=== PATIENT | male | born 1975 | race African-American/Black ===

== ENCOUNTER 2019-01-13 | Inpatient (IN) | payer OTHER ==
[2019-01-13 00:31] LABS: Appearance,Urine Clear (Clear); Bilirubin,Urine Negative (Negative); Blood,Urine Negative (Negative); Color,Urine Yellow; Glucose,Urine (UA) Negative (Negative); Ketones,Urine Negative (Negative); Leukocyte Esterase,Urine Small (Negative); Mucus,Urine Rare /hpf; Nitrite,Urine Negative (Negative); Protein,Urine Trace (Negative); RBC,Urine 9 /hpf (0-5); Specific Gravity,Urine 1.025 (1.001-1.035); Squamous Epithelial Cell,Urine 1 /hpf (0-4)
--- NOTE | 2019-01-13 00:38 | XR ---
EXAM: XR Abdomen, 1 View CLINICAL HISTORY: ITS.REASON XR Reason: Pain TECHNIQUE: Frontal supine view of the abdomen/pelvis. COMPARISON: None FINDINGS: Hardware: None. Abdomen: Nonobstructive bowel gas pattern. No free air. Bones: Normal. Soft tissues: Normal. Lower chest: Normal. IMPRESSION: No acute abnormality.
[2019-01-13 02:21] LABS: Basophils % (A) 0 %; Eosinophils # (A) 0.2 k/uL (0-0.7); Eosinophils % (A) 1 %; HCT 44.4 % (39.0-53.0); HGB 14.2 gm/dL (13.0-17.5); Lymphocytes # (A) 2.1 k/uL (1.0-4.8); Lymphocytes % (A) 16 %; MCH 29.6 pg (25.0-35.0); MCHC 32.1 g/dL (31.0-37.0); MCV 92.2 fL (80.0-100.0); Mean Platelet Volume 7.2; Monocytes # (A) 0.5 k/uL (0-1.0); Monocytes % (A) 4 %; Neutrophils # (A) 9.7 k/uL (1.3-7.7); Neutrophils % (A) 77 %; Platelet Count 305 k/uL (150-450); RBC 4.82 m/uL (4.30-5.90); RDW 14.9 % (11.5-15.5); WBC 12.5 k/uL (3.8-10.6)
[2019-01-13 02:31] LABS: ALT 30 U/L (21-72); AST 23 U/L (17-59); African American GFR (CKD) >90 (>60 ml/min/1.73 sqM); Albumin 4.5 g/dL (3.5-5.0); Alkaline Phosphatase 86 U/L (38-126); Amylase 83 U/L (30-110); Anion Gap 8 mmol/L; Blood Urea Nitrogen 10 mg/dL (9-20); Calcium 9.6 mg/dL (8.4-10.2); Carbon Dioxide 23 mmol/L (22-30); Chloride 107 mmol/L (98-107); Glucose 129 mg/dL (74-99); Lipase 76 U/L (23-300); Potassium 4.5 mmol/L (3.5-5.1); Sodium 138 mmol/L (137-145); Total Bilirubin 0.5 mg/dL (0.2-1.3); Total Protein 7.9 g/dL (6.3-8.2)
[2019-01-13] MEDS ORDERED: ONDANSETRON 4 MG/2 ML VIAL IVP STA (02:37)
[2019-01-13] MEDS ORDERED: MORPHINE SULFATE 4 MG/ML SYRINGE IVP STA (02:37)
--- NOTE | 2019-01-13 03:03 | CT ---
EXAM: CT Abdomen and Pelvis With Intravenous Contrast CLINICAL HISTORY: ITS.REASON CT Reason: Pain TECHNIQUE: Axial computed tomography images of the abdomen and pelvis with intravenous contrast. CTDI is 48 mGy and DLP is 2582 mGy-cm. This CT exam was performed using one or more of the following dose reduction techniques: automated exposure control, adjustment of the mA and/or kV according to patient size, and/or use of iterative reconstruction technique. COMPARISON: No relevant prior studies available. FINDINGS: Lung bases: No mass. No consolidation. ABDOMEN: Liver: Enlarged with steatosis. Gallbladder and bile ducts: Unremarkable. Pancreas: Unremarkable. Spleen: Unremarkable. Adrenals: 1.7 cm low-density left adrenal nodule. Kidneys and ureters: No hydronephrosis. Stomach and bowel: No bowel obstruction. No bowel wall thickening. PELVIS: Appendix: Dilated to 1 cm with mild periappendiceal stranding. Bladder: Unremarkable. Reproductive: Unremarkable. ABDOMEN and PELVIS: Intraperitoneal space: Unremarkable. Bones/joints: No acute fractures. Soft tissues: Unremarkable. Vasculature: No abdominal aortic aneurysm. Lymph nodes: No enlarged lymph nodes. IMPRESSION: 1. Evidence of acute appendicitis. No abscess, perforation, or bowel obstruction. 2. Incidental note of a low density 1.7 cm left adrenal gland nodule. 3. Hepatomegaly with steatosis. <MYCVCSECTION> Critical Value Communications 01/13/19 03:12 Verify Receipt Verified receipt with DENISE Short. Report will go to NANCY Lainez on 01/13 03:12 (-04:00)
[2019-01-13] MEDS ORDERED: PIPERACILLIN-TAZOBACTAM 3.375 GM in SODIUM CHLORIDE 0.9% 100 ML IVPB STA (03:14)
--- NOTE | 2019-01-13 03:15 | ED ---
Abdominal Pain HPI <Dorina Lainez - Last Filed: 01/13/19 03:22> - General Source: patient Mode of arrival: ambulatory Limitations: no limitations <Yajaira De León - Last Filed: 01/13/19 05:23> - General Chief Complaint: Abdominal Pain Stated Complaint: Abdominal Pain Time Seen by Provider: 01/13/19 01:55 - History of Present Illness Initial Comments: 43-year-old male patient presents to emergency department today for evaluation of right lower quadrant abdominal pain. Patient states he started with abdominal discomfort and bloating this morning. Patient states this afternoon he took a nap and when he woke up around 5 PM he had severe right lower quadrant pain. Patient states it felt like someone was stabbing him. Denies any radiation of the pain through to his back. Patient states he has been nauseated but did not vomit. Denies any obstipation or diarrhea. Denies any fever or chills with this. Denies any history of abdominal surgery. Patient denies any recent rash, shortness breath, chest pain, back pain, numbness, tingling, dizziness, weakness, hematuria, dysuria, urinary urgency, urinary frequency, headache, visual changes, or any other complaints. (Dorina Lainez) - Related Data Allergies Allergy/AdvReac Type Severity Reaction Status Date / Time No Known Allergies Allergy Verified 01/13/19 00:12 Review of Systems ROS Other: All systems not noted in ROS Statement are negative. <Dorina Lainez - Last Filed: 01/13/19 03:22> ROS Other: All systems not noted in ROS Statement are negative. <Yajaira De León - Last Filed: 01/13/19 05:23> ROS Statement: Those systems with pertinent positive or pertinent negative responses have been documented in the HPI. Past Medical History Past Medical History: No Reported History History of Any Multi-Drug Resistant Organisms: None Reported Past Surgical History: No Surgical Hx Reported Past Psychological History: No Psychological Hx Reported Smoking Status: Current every day smoker Past Alcohol Use History: None Reported Past Drug Use History: None Reported <Yajaira De León - Last Filed: 01/13/19 05:23> General Exam General appearance: alert, in no apparent distress, other (Physical well- developed, well-nourished adult male patient in no acute distress. Vital signs upon presentation are temperature 98.2F, pulse 95, respirations 19, blood pressure 144/92, pulse ox 97% on room air.) Eye exam: Present: normal appearance, PERRL, EOMI. Absent: scleral icterus, conjunctival injection, periorbital swelling ENT exam: Present: normal exam, normal oropharynx, mucous membranes moist Respiratory exam: Present: normal lung sounds bilaterally. Absent: respiratory distress, wheezes, rales, rhonchi, stridor Cardiovascular Exam: Present: regular rate, normal rhythm, normal heart sounds. Absent: systolic murmur, diastolic murmur, rubs, gallop, clicks GI/Abdominal exam: Present: soft, tenderness (Right lower quadrant tenderness), normal bowel sounds. Absent: distended, guarding, rebound, rigid Neurological exam: Present: alert, oriented X3, CN II-XII intact Psychiatric exam: Present: normal affect, normal mood Skin exam: Present: warm, dry, intact, normal color. Absent: rash <Dorina Lainez M - Last Filed: 01/13/19 03:22> Limitations: no limitations <Yajaira De León P - Last Filed: 01/13/19 05:23> Course Vital Signs 01/13/19 01/13/19 00:09 04:38 Temperature 98.2 F Pulse Rate 95 86 Respiratory 19 20 Rate Blood Pressure 144/92 137/68 O2 Sat by Pulse 97 96 Oximetry Medical Decision Making - Lab Data Result diagrams: 01/13/19 01:48 01/13/19 01:48 - Radiology Data Radiology results: report reviewed, image reviewed <Dorina Lainez M - Last Filed: 01/13/19 03:22> - Lab Data Result diagrams: 01/13/19 01:48 01/13/19 01:48 <Yajaira De León P - Last Filed: 01/13/19 05:23> - Medical Decision Making 43-year-old male patient presents the emergency department today for evaluation of right lower quadrant abdominal pain. Physical examination did reveal right lower quadrant tenderness. Labs reviewed and did reveal white blood cell count at 12.5, with a neutrophil count of 9.7. Urinalysis shows trace protein with small leukocyte esterase, 9 red blood cells, 7 white blood cells, rare mucous. No bacteria. CT abdomen and pelvis was obtained for suspicion of appendicitis, did show positive appendicitis with no abscess, perforation, or bowel structure. Patient will be started on IV antibiotics and admitted to general surgery. (Dorina Lainez) I personally saw and evaluated patient. I agree with the mid-level provider's workup and diagnosis. Patient resting more comfortably after morphine. Results were discussed with the patient. Patient care was discussed with general surgeon asset protection detective DrArelis passing out agrees with plan for antibiotics, admission he will evaluate the patient in the morning with the plan for surgery. (Yajaira De León) - Lab Data Lab Results 01/13/19 01/13/19 01/13/19 Range/Units 00:12 01:48 01:48 WBC 12.5 H (3.8-10.6) k/uL RBC 4.82 (4.30-5.90) m/uL Hgb 14.2 (13.0-17.5) gm/dL Hct 44.4 (39.0-53.0) % MCV 92.2 (80.0-100.0) fL MCH 29.6 (25.0-35.0) pg MCHC 32.1 (31.0-37.0) g/dL RDW 14.9 (11.5-15.5) % Plt Count 305 (150-450) k/uL Neutrophils % 77 % Lymphocytes % 16 % Monocytes % 4 % Eosinophils % 1 % Basophils % 0 % Neutrophils # 9.7 H (1.3-7.7) k/uL Lymphocytes # 2.1 (1.0-4.8) k/uL Monocytes # 0.5 (0-1.0) k/uL Eosinophils # 0.2 (0-0.7) k/uL Basophils # 0.0 (0-0.2) k/uL Sodium 138 (137-145) mmol/L Potassium 4.5 (3.5-5.1) mmol/L Chloride 107 (98-107) mmol/L Carbon Dioxide 23 (22-30) mmol/L Anion Gap 8 mmol/L BUN 10 (9-20) mg/dL Creatinine 0.67 (0.66-1.25) mg/dL Est GFR (CKD-EPI)AfAm >90 (>60 ml/min/1.73 sqM) Est GFR (CKD-EPI)NonAf >90 (>60 ml/min/1.73 sqM) Glucose 129 H (74-99) mg/dL Calcium 9.6 (8.4-10.2) mg/dL Total Bilirubin 0.5 (0.2-1.3) mg/dL AST 23 (17-59) U/L ALT 30 (21-72) U/L Alkaline Phosphatase 86 (38-126) U/L Total Protein 7.9 (6.3-8.2) g/dL Albumin 4.5 (3.5-5.0) g/dL Amylase 83 (30-110) U/L Lipase 76 (23-300) U/L Urine Color Yellow Urine Appearance Clear (Clear) Urine pH 8.0 (5.0-8.0) Ur Specific [place] 1.025 (1.001-1.035) Urine Protein Trace H (Negative) Urine Glucose (UA) Negative (Negative) Urine Ketones Negative (Negative) Urine Blood Negative (Negative) Urine Nitrite Negative (Negative) Urine Bilirubin Negative (Negative) Urine Urobilinogen 2.0 (<2.0) mg/dL Ur Leukocyte Esterase Small H (Negative) Urine RBC 9 H (0-5) /hpf Urine WBC 7 H (0-5) /hpf Ur Squamous Epith Cells 1 (0-4) /hpf Urine Mucus Rare H (None) /hpf - Radiology Data CT abdomen and pelvis with contrast was obtained. Report was reviewed in its entirety. Impression by Dr. Vincent shows evidence of acute appendicitis. No abscess, perforation, or bowel section. Incidental note of low density 1.7 cm left adrenal gland nodule. Hepatomegaly with steatosis. KUB x-ray of the abdomen is obtained. Report was reviewed in its entirety. Impression by Dr. Bradshaw shows no acute abnormality. (Dorina Lainez) Disposition Decision to Admit Reason: Admit from EC Decision Date: 01/13/19 Decision Time: 03:20 <Dorina Lainez - Last Filed: 01/13/19 03:22> <Yajaira De León - Last Filed: 01/13/19 05:23> Clinical Impression: Acute appendicitis Disposition: ADMITTED IP TO THIS [facility] Condition: Serious
[2019-01-13] MEDS ORDERED: MORPHINE SULFATE 4 MG/ML SYRINGE IV PRN (03:59)
[2019-01-13] MEDS ORDERED: NALOXONE 0.4 MG/ML 1 ML VIAL IV PRN ×2 (03:59→11:07)
[2019-01-13] MEDS ORDERED: ONDANSETRON 4 MG/2 ML VIAL IVP PRN (03:59)
--- NOTE | 2019-01-13 08:47 | P.GSHP ---
<Janice Mason A - Last Filed: 01/13/19 08:42> History of Present Illness H&P Date: 01/13/19 Chief Complaint: Abdominal pain CHIEF COMPLAINT: Abdominal pain HISTORY OF PRESENT ILLNESS: 43-year-old male who presented to the emergency room with a chief complaint of abdominal pain. Patient states he was feeling well yesterday and decided to take a nap yesterday afternoon. When he woke up he was having severe right lower quadrant abdominal pain. He reports some nausea but denies episodes of emesis. Denies diarrhea or constipation. Denies fever or chills. WBC 12 on admission. Computed tomography scan shows evidence of acute appendicitis. PAST MEDICAL HISTORY: See list. PAST SURGICAL HISTORY: See list. SOCIAL HISTORY: No illicit drug use. REVIEW OF SYSTEMS: CONSTITUTIONAL: Denies fever or chills. HEENT: Denies blurred vision, vision changes, or eye pain. Denies hemoptysis CARDIOVASCULAR: Denies chest pain or pressure. RESPIRATORY: No shortness of breath. GASTROINTESTINAL: Refer to [facility] for pertinent findings HEMATOLOGIC: Denies bleeding disorders. GENITOURINARY: Denies any blood in urine. SKIN: Denies pruitis. Denies rash. PHYSICAL EXAM: VITAL SIGNS: Reviewed. GENERAL: Well-developed in no acute distress. HEENT: No sclera icterus. Extraocular movements grossly intact. Moist buccal mucosa. Head is atraumatic, normocephalic. ABDOMEN: Soft. Nondistended. Obese. Tenderness on palpation of right lower quadrant. NEUROLOGIC: Alert and oriented. Cranial nerves II through XII grossly intact. ASSESSMENT: 1. Abdominal pain 2. Acute appendicitis 3. Leukocytosis, secondary to above PLAN: 1. Nothing by mouth 2. IV fluids 3. Continue antibiotics 4. Patient to undergo laparoscopic appendectomy today with Dr. Echols Nurse practitioner note has been reviewed by physician. Signing provider agrees with the documented findings, assessment, and plan of care. Past Medical History Past Medical History: No Reported History History of Any Multi-Drug Resistant Organisms: None Reported Past Surgical History: No Surgical Hx Reported Past Psychological History: No Psychological Hx Reported Smoking Status: Current every day smoker Past Alcohol Use History: None Reported Past Drug Use History: None Reported Medications and Allergies Home Medications Medication Instructions Recorded Confirmed Type No Known Home Medications 01/13/19 01/13/19 History Allergies Allergy/AdvReac Type Severity Reaction Status Date / Time No Known Allergies Allergy Verified 01/13/19 07:25 Surgical - Exam Vital Signs Temp Pulse Resp BP Pulse Ox 98.2 F 95 19 144/92 97 01/13/19 00:09 01/13/19 00:09 01/13/19 00:09 01/13/19 00:09 01/13/19 00:09 Results - Labs 01/13/19 01:48 01/13/19 01:48 Abnormal Lab Results - Last 24 Hours (Table) 01/13/19 01/13/19 01/13/19 Range/Units 00:12 01:48 01:48 WBC 12.5 H (3.8-10.6) k/uL Neutrophils # 9.7 H (1.3-7.7) k/uL Glucose 129 H (74-99) mg/dL Urine Protein Trace H (Negative) Ur Leukocyte Esterase Small H (Negative) Urine RBC 9 H (0-5) /hpf Urine WBC 7 H (0-5) /hpf Urine Mucus Rare H (None) /hpf Diabetes panel 01/13/19 Range/Units 01:48 Sodium 138 (137-145) mmol/L Potassium 4.5 (3.5-5.1) mmol/L Chloride 107 (98-107) mmol/L Carbon Dioxide 23 (22-30) mmol/L BUN 10 (9-20) mg/dL Creatinine 0.67 (0.66-1.25) mg/dL Glucose 129 H (74-99) mg/dL Calcium 9.6 (8.4-10.2) mg/dL AST 23 (17-59) U/L ALT 30 (21-72) U/L Alkaline Phosphatase 86 (38-126) U/L Total Protein 7.9 (6.3-8.2) g/dL Albumin 4.5 (3.5-5.0) g/dL Calcium panel 01/13/19 Range/Units 01:48 Calcium 9.6 (8.4-10.2) mg/dL Albumin 4.5 (3.5-5.0) g/dL Pituitary panel 01/13/19 Range/Units 01:48 Sodium 138 (137-145) mmol/L Potassium 4.5 (3.5-5.1) mmol/L Chloride 107 (98-107) mmol/L Carbon Dioxide 23 (22-30) mmol/L BUN 10 (9-20) mg/dL Creatinine 0.67 (0.66-1.25) mg/dL Glucose 129 H (74-99) mg/dL Calcium 9.6 (8.4-10.2) mg/dL Adrenal panel 01/13/19 Range/Units 01:48 Sodium 138 (137-145) mmol/L Potassium 4.5 (3.5-5.1) mmol/L Chloride 107 (98-107) mmol/L Carbon Dioxide 23 (22-30) mmol/L BUN 10 (9-20) mg/dL Creatinine 0.67 (0.66-1.25) mg/dL Glucose 129 H (74-99) mg/dL Calcium 9.6 (8.4-10.2) mg/dL Total Bilirubin 0.5 (0.2-1.3) mg/dL AST 23 (17-59) U/L ALT 30 (21-72) U/L Alkaline Phosphatase 86 (38-126) U/L Total Protein 7.9 (6.3-8.2) g/dL Albumin 4.5 (3.5-5.0) g/dL <Rj Echols - Last Filed: 01/13/19 09:54> Surgical - Exam Vital Signs Temp Pulse Resp BP Pulse Ox 98.2 F 95 19 144/92 97 01/13/19 00:09 01/13/19 00:09 01/13/19 00:09 01/13/19 00:09 01/13/19 00:09 Results - Labs 01/13/19 01:48 01/13/19 01:48 Abnormal Lab Results - Last 24 Hours (Table) 01/13/19 01/13/19 01/13/19 Range/Units 00:12 01:48 01:48 WBC 12.5 H (3.8-10.6) k/uL Neutrophils # 9.7 H (1.3-7.7) k/uL Glucose 129 H (74-99) mg/dL Urine Protein Trace H (Negative) Ur Leukocyte Esterase Small H (Negative) Urine RBC 9 H (0-5) /hpf Urine WBC 7 H (0-5) /hpf Urine Mucus Rare H (None) /hpf Diabetes panel 01/13/19 Range/Units 01:48 Sodium 138 (137-145) mmol/L Potassium 4.5 (3.5-5.1) mmol/L Chloride 107 (98-107) mmol/L Carbon Dioxide 23 (22-30) mmol/L BUN 10 (9-20) mg/dL Creatinine 0.67 (0.66-1.25) mg/dL Glucose 129 H (74-99) mg/dL Calcium 9.6 (8.4-10.2) mg/dL AST 23 (17-59) U/L ALT 30 (21-72) U/L Alkaline Phosphatase 86 (38-126) U/L Total Protein 7.9 (6.3-8.2) g/dL Albumin 4.5 (3.5-5.0) g/dL Calcium panel 01/13/19 Range/Units 01:48 Calcium 9.6 (8.4-10.2) mg/dL Albumin 4.5 (3.5-5.0) g/dL Pituitary panel 01/13/19 Range/Units 01:48 Sodium 138 (137-145) mmol/L Potassium 4.5 (3.5-5.1) mmol/L Chloride 107 (98-107) mmol/L Carbon Dioxide 23 (22-30) mmol/L BUN 10 (9-20) mg/dL Creatinine 0.67 (0.66-1.25) mg/dL Glucose 129 H (74-99) mg/dL Calcium 9.6 (8.4-10.2) mg/dL Adrenal panel 01/13/19 Range/Units 01:48 Sodium 138 (137-145) mmol/L Potassium 4.5 (3.5-5.1) mmol/L Chloride 107 (98-107) mmol/L Carbon Dioxide 23 (22-30) mmol/L BUN 10 (9-20) mg/dL Creatinine 0.67 (0.66-1.25) mg/dL Glucose 129 H (74-99) mg/dL Calcium 9.6 (8.4-10.2) mg/dL Total Bilirubin 0.5 (0.2-1.3) mg/dL AST 23 (17-59) U/L ALT 30 (21-72) U/L Alkaline Phosphatase 86 (38-126) U/L Total Protein 7.9 (6.3-8.2) g/dL Albumin 4.5 (3.5-5.0) g/dL Assessment and Plan Assessment: Acute appendicitis. We'll perform laparoscopic appendectomy
[2019-01-13] MEDS ORDERED: LACTATED RINGERS 1,000 ML IV ONE ×2 (09:42→11:07)
[2019-01-13] MEDS ORDERED: HEPARIN SODIUM,PORCINE 5,000 UNIT/ML 1 ML VIAL SQ ONE (09:58)
[2019-01-13] MEDS ORDERED: MIDAZOLAM 2 MG/2 ML VIAL ONE (10:08)
[2019-01-13] MEDS ORDERED: PROPOFOL 10 MG/ML 20 ML VIAL IV ONE (10:08)
[2019-01-13] MEDS ORDERED: ROCURONIUM BROMIDE 10 MG/ML 10 ML VIAL IV ONE (10:08)
[2019-01-13] MEDS ORDERED: NEOSTIGMINE 1 MG/ML 10 ML VIAL ONE (10:08)
[2019-01-13] MEDS ORDERED: HYDROmorphone (PF) 1 MG/ML ONE (10:08)
[2019-01-13] MEDS ORDERED: SUCCINYLCHOLINE CHLORIDE VIAL 200 MG/10 ML VIAL IV ONE (10:08)
[2019-01-13] MEDS ORDERED: fentaNYL (PF) 50 MCG/ML 2 ML AMP ONE (10:08)
[2019-01-13] MEDS ORDERED: LIDOCAINE 1% INJ 10MG/ML (20 ML MDV) ONE (10:08)
[2019-01-13] MEDS ORDERED: GLYCOPYRROLATE 0.2 MG/ML 2 ML VIAL ONE (10:08)
[2019-01-13] MEDS ORDERED: BUPIVACAIN-EPI 0.25%-1:200,000 30 ML VIAL SQ ONE (10:44)
[2019-01-13] MEDS ORDERED: HYDROcodone/APAP 5-325MG 1 EACH TAB PO PRN (11:07)
[2019-01-13] MEDS ORDERED: Acetaminophen-Codeine 300-30mg TAB PO PRN (11:07)
[2019-01-13] MEDS ORDERED: METOCLOPRAMIDE 5 MG/ML 2 ML VIAL IVP PRN (11:07)
[2019-01-13] MEDS ORDERED: HYDROmorphone 0.5 MG/0.5 ML SYRINGE IVP PRN (11:07)
--- NOTE | 2019-01-13 11:07 | P.OP ---
Date of Procedure: 01/13/19 Preoperative Diagnosis: Acute appendicitis Postoperative Diagnosis: Acute appendicitis with microperforation and ischemia Procedure(s) Performed: Laparoscopic appendectomy Anesthesia: FATIMAH Surgeon: Rj Echols Estimated Blood Loss (ml): 5 Pathology: other (Appendix) Condition: stable Disposition: PACU Description of Procedure: HThe patient's placed on the operating table in the supine position. The patient received general anesthesia. The abdomen was prepped and draped in the usual sterile fashion. The skin was anesthetized 1% local Xylocaine at the trocar sites. Using an 11 blade the skin was incised at the umbilicus. The umbilicus was grasped with a Aaron clamp and then a Veress needle was placed into the peritoneal cavity. Position of the Veress needle was confirmed with positive drop test. After adequate insufflation a 5 mm trocar was placed into the peritoneal cavity. The abdomen was further insufflated. And then the laparoscope was placed in the peritoneal cavity. Next a 5 mm trocar was placed in the midline suprapubic position. And then a 10 mm trocar was placed in the midline epigastric position. The patient was rotated with the right side up and in Trendelenburg. The appendix was visualized. The appendix appeared to be inflamed. There was evidence of microperforation of the appendix. The postvoid quite swollen. There was some purulence around the appendix. The appendix was grasped and then using the Harmonic scissors the mesoappendix was divided. A PDS Endoloop was then placed around the base of the appendix. And then the appendix was divided using Harmonic scissors. The appendix was placed into an Endo Catch and brought out through the 10 mm trocar site. The abdomen was irrigated. There is no bleeding seen. The trochars withdrawn. The skin was closed interrupted 3-0 Monocryl suture. Dermabond dressing was applied. Patient was sent to recovery room in stable condition.
[2019-01-13] MEDS ORDERED: HYDROmorphone 1 MG/ML 1 ML SYRINGE IVP ONE ×2 (11:29→12:02)
[2019-01-13] MEDS: KETOROLAC 30 MG/ML 1 ML VIAL IVP SCH ×3 (15:26→22:39)
[2019-01-13] MEDS: SODIUM CHLORIDE 0.9% 1,000 ML IV SCH ×3 (15:26→21:17)
[2019-01-13] MEDS: PIPERACILLIN-TAZOBACTAM 3.375 GM in SODIUM CHLORIDE 0.9% 100 ML IVPB SCH ×2 (15:26→16:43)
--- NOTE | 2019-01-13 16:42 | P.CONS ---
History of Present Illness - Reason for Consult Recommendations regarding antibiotics - History of Present Illness 43-year-old male came in with severe right lower quadrant abdominal pain along with nausea going on since yesterday afternoon. Patient is found to have appendicitis and underwent laparotomy which showed ruptured appendix patient was started on Zosyn which is appropriate patient had white blood cell count of 12,000 patient is receiving IV fluids since abdominal pain significantly improved patient did not pass gas yet. Patient denied any fever chills. Review of Systems REVIEW OF SYSTEMS: CONSTITUTIONAL: No fever, no malaise, no fatigue. HEENT: No recent visual problems or hearing problems. Denied any sore throat. CARDIOVASCULAR: No chest pain, orthopnea, PND, no palpitations, no syncope. PULMONARY: No shortness of breath, no cough, no hemoptysis. GASTROINTESTINAL: No diarrhea NEUROLOGICAL: No headaches, no weakness, no numbness. HEMATOLOGICAL: Denies any bleeding or petechiae. GENITOURINARY: Denies any burning micturition, frequency, or urgency. MUSCULOSKELETAL/RHEUMATOLOGICAL: Denies any joint pain, swelling, or any muscle pain. ENDOCRINE: Denies any polyuria or polydipsia. The rest of the 14-point review of systems is negative. Past Medical History Past Medical History: No Reported History Additional Past Medical History / Comment(s): Bronchitis History of Any Multi-Drug Resistant Organisms: None Reported Past Surgical History: No Surgical Hx Reported Additional Past Surgical History / Comment(s): L leg fractures-closed reduction with anesthesia. Past Anesthesia/Blood Transfusion Reactions: No Reported Reaction Smoking Status: Current every day smoker - Past Family History Father History Unknown: Yes Additional Family Medical History / Comment(s): Pt does not know who father is. Mother Family Medical History: Diabetes Mellitus Medications and Allergies Home Medications Medication Instructions Recorded Confirmed Type No Known Home Medications 01/13/19 01/13/19 History Allergies Allergy/AdvReac Type Severity Reaction Status Date / Time No Known Allergies Allergy Verified 01/13/19 07:25 Physical Exam Vitals: Vital Signs Temp Pulse Pulse Resp BP BP BP 01/13/19 15:00 99.4 F 96 16 104/64 01/13/19 14:30 98 16 123/64 01/13/19 13:45 92 16 138/59 01/13/19 13:30 101 H 16 135/63 01/13/19 13:00 103 H 16 107/61 01/13/19 12:45 91 14 139/62 01/13/19 12:30 106 H 14 126/59 01/13/19 12:15 96 14 138/60 01/13/19 12:00 104 H 14 128/74 01/13/19 11:45 106 H 14 154/65 01/13/19 11:30 107 H 14 131/59 01/13/19 11:24 98.5 F 109 H 20 132/58 01/13/19 09:41 99.9 F H 107 H 18 148/69 01/13/19 06:51 91 20 132/64 01/13/19 04:38 86 20 137/68 01/13/19 00:09 98.2 F 95 19 144/92 Pulse Ox 01/13/19 15:00 96 01/13/19 14:30 95 01/13/19 13:45 96 01/13/19 13:30 99 01/13/19 13:00 96 01/13/19 12:45 94 L 01/13/19 12:30 95 01/13/19 12:15 93 L 01/13/19 12:00 94 L 01/13/19 11:45 91 L 01/13/19 11:30 91 L 01/13/19 11:24 99 01/13/19 09:41 95 01/13/19 06:51 95 01/13/19 04:38 96 01/13/19 00:09 97 Intake and Output 01/13/19 01/13/19 01/13/19 06:59 14:59 22:59 Intake Total 900 Output Total 5 Balance 895 Intake: IV 900 Output: Estimated Blood Loss 5 Other: # Voids 1 Weight 136.078 kg PHYSICAL EXAMINATION: GENERAL: The patient is alert and oriented x3, not in any acute distress. Obese HEENT: Pupils are round and equally reacting to light. EOMI. No scleral icterus. No conjunctival pallor. Normocephalic, atraumatic. No pharyngeal erythema. No thyromegaly. CARDIOVASCULAR: S1 and S2 present. No murmurs, rubs, or gallops. PULMONARY: Chest is clear to auscultation, no wheezing or crackles. ABDOMEN: Soft, surgical site areas clean, sluggish bowel sounds MUSCULOSKELETAL: No joint swelling or deformity. EXTREMITIES: No cyanosis, clubbing, or pedal edema. NEUROLOGICAL: Gross neurological examination did not reveal any focal deficits. SKIN: No rashes. Results CBC & Chem 7: 01/13/19 01:48 01/13/19 01:48 Labs: Abnormal Lab Results - Last 24 Hours (Table) 01/13/19 01/13/19 01/13/19 Range/Units 00:12 01:48 01:48 WBC 12.5 H (3.8-10.6) k/uL Neutrophils # 9.7 H (1.3-7.7) k/uL Glucose 129 H (74-99) mg/dL Urine Protein Trace H (Negative) Ur Leukocyte Esterase Small H (Negative) Urine RBC 9 H (0-5) /hpf Urine WBC 7 H (0-5) /hpf Urine Mucus Rare H (None) /hpf Assessment and Plan Plan: -Acute appendicitis ruptured appendix: Patient on appropriate antibiotics continue with present medications will monitor -Nicotine abuse: Counseling was provided -Obesity: Counseling was provided Thank you for letting me participate in the patient's care will continue to follow
--- NOTE | 2019-01-13 21:19 | P.CONS ---
History of Present Illness - Reason for Consult Consult date: 01/13/19 Ruptured appendicitis and antibiotic recommendation Requesting physician: Rj Echols - Chief Complaint Abdominal pain 1 day - History of Present Illness Patient is a 43-year-old -[place] male presenting to the ER at [facility] with the chief complaints of abdominal pain of one-day duration the patient patient has been mostly in the right lower quadrant area that started the day he presented to hospital he has been mostly sharp with intensity of almost 10 out of 10 with severe with associated nausea and episode of vomiting denies any diarrhea or constipation patient be complaining of some chills and rigors with it with the symptoms the patient presented to the hospital on June the patient noticed to have low-grade fever of 99.9 his white count was elevated 12,000 CT of abdominal pelvis was completed and was suggestive of acute appendicitis without perforation patient was taken to the OR subsequently was noticed to have acute appendicitis with microperforation status post laparoscopic appendectomy patient has been started on Zosyn and admitted to the hospital infectious disease was consulted for further recommendation rega rding antibiotic therapy Review of Systems Positive points has been mentioned in HPI rest of the systems are negative Past Medical History Past Medical History: No Reported History Additional Past Medical History / Comment(s): Bronchitis History of Any Multi-Drug Resistant Organisms: None Reported Past Surgical History: No Surgical Hx Reported Additional Past Surgical History / Comment(s): L leg fractures-closed reduction with anesthesia. Past Anesthesia/Blood Transfusion Reactions: No Reported Reaction Smoking Status: Current every day smoker - Past Family History Father History Unknown: Yes Additional Family Medical History / Comment(s): Pt does not know who father is. Mother Family Medical History: Diabetes Mellitus Medications and Allergies Home Medications Medication Instructions Recorded Confirmed Type No Known Home Medications 01/13/19 01/13/19 History Allergies Allergy/AdvReac Type Severity Reaction Status Date / Time No Known Allergies Allergy Verified 01/13/19 07:25 Physical Exam Vitals: Vital Signs Temp Pulse Pulse Resp BP BP BP 01/13/19 15:00 99.4 F 96 16 104/64 01/13/19 14:30 98 16 123/64 01/13/19 13:45 92 16 138/59 01/13/19 13:30 101 H 16 135/63 01/13/19 13:00 103 H 16 107/61 01/13/19 12:45 91 14 139/62 01/13/19 12:30 106 H 14 126/59 01/13/19 12:15 96 14 138/60 01/13/19 12:00 104 H 14 128/74 01/13/19 11:45 106 H 14 154/65 01/13/19 11:30 107 H 14 131/59 01/13/19 11:24 98.5 F 109 H 20 132/58 01/13/19 09:41 99.9 F H 107 H 18 148/69 01/13/19 06:51 91 20 132/64 01/13/19 04:38 86 20 137/68 01/13/19 00:09 98.2 F 95 19 144/92 Pulse Ox 01/13/19 15:00 96 01/13/19 14:30 95 01/13/19 13:45 96 01/13/19 13:30 99 01/13/19 13:00 96 01/13/19 12:45 94 L 01/13/19 12:30 95 01/13/19 12:15 93 L 01/13/19 12:00 94 L 01/13/19 11:45 91 L 01/13/19 11:30 91 L 01/13/19 11:24 99 01/13/19 09:41 95 01/13/19 06:51 95 01/13/19 04:38 96 01/13/19 00:09 97 Intake and Output 01/13/19 01/13/19 01/13/19 06:59 14:59 22:59 Intake Total 900 Output Total 5 Balance 895 Intake: IV 900 Output: Estimated Blood Loss 5 Other: # Voids 1 Weight 136.078 kg GENERAL DESCRIPTION: Middle-aged male lying in bed, no distress. No tachypnea or accessory muscle of respiration use. HEENT: Shows Pallor , no scleral icterus. Oral mucous membrane is dry. No pharyngeal erythema or thrush NECK: Trachea central, no thyromegaly. LUNGS: Unlabored breathing. Clear to auscultation anteriorly. No wheeze or crackle. HEART: S1, S2, regular rate and rhythm. No loud murmur ABDOMEN: Soft, mild distention and right lower quadrant tenderness , no guarding or rigidity EXTREMITIES: No edema of feet. SKIN: No rash, no masses palpable. NEUROLOGICAL: The patient is awake, alert, oriented x3, mood and affect normal Results CBC & Chem 7: 01/13/19 01:48 01/13/19 01:48 Labs: Abnormal Lab Results - Last 24 Hours (Table) 01/13/19 01/13/19 01/13/19 Range/Units 00:12 01:48 01:48 WBC 12.5 H (3.8-10.6) k/uL Neutrophils # 9.7 H (1.3-7.7) k/uL Glucose 129 H (74-99) mg/dL Urine Protein Trace H (Negative) Ur Leukocyte Esterase Small H (Negative) Urine RBC 9 H (0-5) /hpf Urine WBC 7 H (0-5) /hpf Urine Mucus Rare H (None) /hpf Assessment and Plan Assessment: 1-patient admitted hospital with acute abdominal pain in this patient has been diagnosed with acute appendicitis status post laparoscopic appendectomy in this patient noticed to have microperforation ischemia with concern for possible secondary peritonitis will need to cover for enteric gram-negative pathogen both anaerobes and anaerobes in this patient who has not been on antibiotic in the recent past could be sensitive pathogen such as E. coli and Bacteroides species (1) Acute appendicitis Current Visit: Yes Status: Acute Code(s): K35.80 - UNSPECIFIED ACUTE APPENDICITIS SNOMED Code(s): 72419169 Plan: 1-discontinue the Zosyn 2-we will start the patient on Unasyn 3 g every 6 hours 3-gentle IV fluid we will follow up on clinical condition and cultures to further adjust medication if needed Thank you for this consultation will follow this patient along with you Time with Patient: Greater than 30
[2019-01-14] MEDS ORDERED: PIPERACILLIN-TAZOBACTAM 3.375 GM in SODIUM CHLORIDE 0.9% 100 ML IVPB SCH ×2
[2019-01-14] MEDS: AMPICILLIN-SULBACTAM 3 GM in SODIUM CHLORIDE 0.9% 100 ML IVPB SCH ×4 (02:11→18:04)
[2019-01-14] MEDS: KETOROLAC 30 MG/ML 1 ML VIAL IVP SCH ×3 (05:50→18:02)
[2019-01-14 07:55] LABS: Basophils % (A) 0 %; Eosinophils # (A) 0.1 k/uL (0-0.7); Eosinophils % (A) 1 %; HCT 39.9 % (39.0-53.0); HGB 12.3 gm/dL (13.0-17.5); Lymphocytes # (A) 2.5 k/uL (1.0-4.8); Lymphocytes % (A) 15 %; MCH 28.5 pg (25.0-35.0); MCHC 30.7 g/dL (31.0-37.0); MCV 92.8 fL (80.0-100.0); Mean Platelet Volume 7.3; Monocytes % (A) 6 %; Neutrophils # (A) 12.6 k/uL (1.3-7.7); Neutrophils % (A) 76 %; Platelet Count 255 k/uL (150-450); RDW 15.7 % (11.5-15.5); WBC 16.6 k/uL (3.8-10.6)
[2019-01-14 08:20] LABS: ALT 21 U/L (21-72); AST 27 U/L (17-59); African American GFR (CKD) >90 (>60 ml/min/1.73 sqM); Albumin 3.7 g/dL (3.5-5.0); Alkaline Phosphatase 64 U/L (38-126); Anion Gap 6 mmol/L; Blood Urea Nitrogen 17 mg/dL (9-20); Calcium 8.8 mg/dL (8.4-10.2); Carbon Dioxide 25 mmol/L (22-30); Chloride 110 mmol/L (98-107); Glucose 101 mg/dL (74-99); Potassium 4.3 mmol/L (3.5-5.1); Sodium 141 mmol/L (137-145); Total Bilirubin 0.6 mg/dL (0.2-1.3); Total Protein 6.8 g/dL (6.3-8.2)
[2019-01-14] MEDS: SODIUM CHLORIDE 0.9% 1,000 ML IV SCH ×2 (08:27→22:30)
[2019-01-14] MEDS: ENOXAPARIN 40 MG/0.4 ML SYRINGE SQ SCH (08:27)
--- NOTE | 2019-01-14 12:59 | PN ---
PROGRESS NOTE DATE OF SERVICE: 01/14/2019 REASON FOR FOLLOWUP: Acute suppurative appendicitis with possible secondary peritonitis. INTERVAL HISTORY: The patient overall fever pattern has improved. No fever has been recorded today. The patient denies having any chest pain or shortness of breath or cough. Abdominal pain has slightly improved. No nausea, vomiting. Did have small bowel movement. PHYSICAL EXAMINATION: On examination, blood pressure 124/80 with a pulse of 85, temperature 98. He is 93% on room air. General description is a middle aged male up in the chair in no distress. RESPIRATORY SYSTEM: Unlabored breathing, clear to auscultation anteriorly. HEART: S1, S2. Regular rate and rhythm. ABDOMEN: Soft, mild distention. No guarding or rigidity. LABS: Hemoglobin 12.3, white count 16.6. BUN of 17, creatinine 0.95. DIAGNOSTIC IMPRESSION AND PLAN: Patient with acute suppurative appendicitis, status post appendectomy. The patient at this time will continue with the Unasyn while awaiting for the white count to normalize before switching to oral antibiotics. Continue supportive care. MMODL / IJN: [id number] /
--- NOTE | 2019-01-14 13:45 | P.PN ---
Progress Note - Text Progress Note Date: 01/14/19 Patient feels better today. His pain is much improved. On exam is lesser stable. His abdomen soft. Status post laparoscopic appendectomy for appendicitis with microperforation. Patient receive IV antibiotic. We dysphagia discharged home the next 24-48 hours.
--- NOTE | 2019-01-14 15:29 | P.PN ---
Subjective 43-year-old male admitted for appendicitis and ruptured appendix patient is on Zosyn clinically doing well no overnight events patient's crackles improved. No further intervention at this time medically stable to be discharged. Only has minimal pain in the right lower quadrant. Constitutional: Denied any fatigue denied any fever. Cardio vascular: denied any chest pain, palpitations Gastrointestinal denied any nausea vomiting Pulmonary: Denied any shortness of breath cough Neurologic denied any new focal deficits All inpatient medications were reviewed and appropriate changes in these medications as dictated in the interval history and assessment and plan. Objective - Vital Signs Vital signs: Vital Signs Temp 98.5 F 01/14/19 14:21 Pulse 86 01/14/19 14:21 Resp 16 01/14/19 14:21 BP 135/77 01/14/19 14:21 Pulse Ox 92 L 01/14/19 14:21 Intake & Output 01/13/19 01/14/19 01/14/19 18:59 06:59 18:59 Intake Total 900 918 Output Total 5 Balance 895 918 Intake: IV 900 Intake, IV Titration 800 Amount Ampicillin-Sulbactam 3 gm 200 In Sodium Chloride 0.9% 100 ml @ 200 mls/hr IVPB Q6HR [facility] Rx#:[id number] Sodium Chloride 0.9% 1, 600 000 ml @ 75 mls/hr IV . [id number] [facility] Rx#:[id number] Oral 118 Output: Estimated Blood Loss 5 Other: Voiding Method Toilet # Voids 1 2 # Bowel Movements 1 - Exam PHYSICAL EXAMINATION: GENERAL: The patient is alert and oriented x3, not in any acute distress. Obese HEENT: Pupils are round and equally reacting to light. EOMI. No scleral icterus. No conjunctival pallor. Normocephalic, atraumatic. No pharyngeal erythema. No thyromegaly. CARDIOVASCULAR: S1 and S2 present. No murmurs, rubs, or gallops. PULMONARY: Chest is clear to auscultation, no wheezing or crackles. ABDOMEN: Soft, surgical site areas clean, sluggish bowel sounds MUSCULOSKELETAL: No joint swelling or deformity. EXTREMITIES: No cyanosis, clubbing, or pedal edema. NEUROLOGICAL: Gross neurological examination did not reveal any focal deficits. SKIN: No rashes. - Labs CBC & Chem 7: 01/14/19 07:33 01/14/19 07:33 Labs: Abnormal Lab Results - Last 24 Hours (Table) 01/14/19 01/14/19 Range/Units 07:33 07:33 WBC 16.6 H (3.8-10.6) k/uL Hgb 12.3 L (13.0-17.5) gm/dL MCHC 30.7 L (31.0-37.0) g/dL RDW 15.7 H (11.5-15.5) % Neutrophils # 12.6 H (1.3-7.7) k/uL Chloride 110 H (98-107) mmol/L Glucose 101 H (74-99) mg/dL Assessment and Plan Plan: -Acute appendicitis ruptured appendix: Patient on appropriate antibiotics con tinue with present medications -Nicotine abuse: Counseling was provided -Obesity: Counseling was provided Thank you for letting me participate in the patient's care patient can be discharged from medical perspective on Augmentin probably for about a week
[2019-01-15] MEDS: KETOROLAC 30 MG/ML 1 ML VIAL IVP SCH ×2 (00:05→05:25)
[2019-01-15] MEDS: AMPICILLIN-SULBACTAM 3 GM in SODIUM CHLORIDE 0.9% 100 ML IVPB SCH ×3 (00:06→12:22)
[2019-01-15] MEDS: ENOXAPARIN 40 MG/0.4 ML SYRINGE SQ SCH (10:09)
[2019-01-15] MEDS: SODIUM CHLORIDE 0.9% 1,000 ML IV SCH (10:09)
--- NOTE | 2019-01-15 10:55 | P.PN ---
Progress Note - Text Progress Note Date: 01/15/19 Postoperative day 2 Patient is postoperative to from laparoscopic appendectomy for acute append icitis microperforation. He had a low-grade fever last night. He states he feels well. He denies a significant abdominal pain. On exam his vital signs are stable. His abdomen soft. Patient will remain in the in the hospital for IV antibiotic therapy. We discussed with discharge home tomorrow.
[2019-01-15 11:12] LABS: African American GFR (CKD) >90 (>60 ml/min/1.73 sqM); Anion Gap 6 mmol/L; Blood Urea Nitrogen 13 mg/dL (9-20); Calcium 8.8 mg/dL (8.4-10.2); Carbon Dioxide 24 mmol/L (22-30); Chloride 112 mmol/L (98-107); Glucose 102 mg/dL (74-99); Sodium 142 mmol/L (137-145)
[2019-01-15 11:37] LABS: Basophils % (A) 0 %; Eosinophils # (A) 0.1 k/uL (0-0.7); Eosinophils % (A) 1 %; HCT 38.7 % (39.0-53.0); HGB 12.2 gm/dL (13.0-17.5); Lymphocytes # (A) 1.9 k/uL (1.0-4.8); Lymphocytes % (A) 23 %; MCH 29.5 pg (25.0-35.0); MCHC 31.6 g/dL (31.0-37.0); MCV 93.3 fL (80.0-100.0); Mean Platelet Volume 7.2; Monocytes % (A) 12 %; Neutrophils # (A) 4.9 k/uL (1.3-7.7); Neutrophils % (A) 60 %; Platelet Count 240 k/uL (150-450); RBC 4.15 m/uL (4.30-5.90); RDW 14.8 % (11.5-15.5); WBC 8.2 k/uL (3.8-10.6)
--- NOTE | 2019-01-15 12:34 | PN ---
PROGRESS NOTE DATE OF SERVICE: 01/15/2019 REASON FOR FOLLOWUP: Acute suppurative appendicitis with secondary peritonitis. INTERVAL HISTORY: The patient did have a low-grade fever of 100.4 this morning the patient is a 17 blood culture was really hard denies having any right cultures. The patient overall is feeling better. Abdominal pain has improved. Has been tolerating causes diet and did have a bowel movement. No urinary symptoms. PHYSICAL EXAMINATION: Blood pressure is 155/94 with a pulse of 79, temperature 100.4. He is 91% on room air. General description is a middle aged male, up in the chair in no distress. RESPIRATORY SYSTEM: Unlabored breathing. clear to auscultation anteriorly. HEART: S1, S2. Regular rate and rhythm. ABDOMEN: Soft, no tenderness. LABS: No CBC was done today. DIAGNOSTIC IMPRESSION AND PLAN: Patient with acute suppurative appendicitis, status post appendectomy. Patient did have a new fever for which we will check a blood culture, CBC and BMP. Keep the patient on antibiotic for 24 hours. If the patient remains to be afebrile and his white count normalized before discharging on oral antibiotics. Continue supportive care. MMODL / IJN: [id number] /
--- NOTE | 2019-01-15 15:38 | P.PN ---
Subjective 43-year-old male admitted for appendicitis and ruptured appendix patient is on Zosyn clinically doing well no overnight events patient's crackles improved. No further intervention at this time medically stable to be discharged. Only has minimal pain in the right lower quadrant. 01/15/2019 Patient has a low-grade fever patient continuous tube and antibiotics is being managed by infectious disease patient's white blood cell count has come down Constitutional: Denied any fatigue denied any fever. Cardio vascular: denied any chest pain, palpitations Gastrointestinal denied any nausea vomiting Pulmonary: Denied any shortness of breath cough Neurologic denied any new focal deficits All inpatient medications were reviewed and appropriate changes in these medications as dictated in the interval history and assessment and plan. Objective - Vital Signs Vital signs: Vital Signs Temp 100.1 F H 01/15/19 15:00 Pulse 85 01/15/19 15:00 Resp 18 01/15/19 15:00 BP 149/90 01/15/19 15:00 Pulse Ox 95 01/15/19 15:00 Intake & Output 01/14/19 01/15/19 01/15/19 18:59 06:59 18:59 Intake Total 1368 750 420 Balance 1368 750 420 Intake: Intake, IV Titration 800 750 Amount Ampicillin-Sulbactam 3 gm 200 In Sodium Chloride 0.9% 100 ml @ 200 mls/hr IVPB Q6HR [facility] Rx#:[id number] Sodium Chloride 0.9% 1, 600 750 000 ml @ 75 mls/hr IV . [id number] [facility] Rx#:[id number] Oral 568 420 Other: Voiding Method Toilet # Voids 2 2 3 - Exam PHYSICAL EXAMINATION: GENERAL: The patient is alert and oriented x3, not in any acute distress. Obese HEENT: Pupils are round and equally reacting to light. EOMI. No scleral icterus. No conjunctival pallor. Normocephalic, atraumatic. No pharyngeal erythema. No thyromegaly. CARDIOVASCULAR: S1 and S2 present. No murmurs, rubs, or gallops. PULMONARY: Chest is clear to auscultation, no wheezing or crackles. ABDOMEN: Soft, surgical site areas clean, sluggish bowel sounds MUSCULOSKELETAL: No joint swelling or deformity. EXTREMITIES: No cyanosis, clubbing, or pedal edema. NEUROLOGICAL: Gross neurological examination did not reveal any focal deficits. SKIN: No rashes. - Labs CBC & Chem 7: 01/15/19 10:35 01/15/19 10:35 Labs: Abnormal Lab Results - Last 24 Hours (Table) 01/15/19 01/15/19 Range/Units 10:35 10:35 RBC 4.15 L (4.30-5.90) m/uL Hgb 12.2 L (13.0-17.5) gm/dL Hct 38.7 L (39.0-53.0) % Chloride 112 H (98-107) mmol/L Glucose 102 H (74-99) mg/dL Assessment and Plan Plan: -Acute appendicitis ruptured appendix: Patient on appropriate antibiotics continue with present medications -Nicotine abuse: Counseling was provided -Obesity: Counseling was provided Thank you for letting me participate in the patient's care patient can be discharged from medical perspective on Augmentin probably for about a week. We'll continue to follow the patient on as-needed basis
[2019-01-15] MEDS: AMOXIC-POT CLAV 875-125MG 1 EACH TAB PO SCH (21:12)
[2019-01-16] MEDS: SODIUM CHLORIDE 0.9% 1,000 ML IV SCH (02:38)
[2019-01-16 02:51] VITALS: RESP 16
[2019-01-16 07:40] VITALS: TEMP 98.8
[2019-01-16 09:08] VITALS: BP 150/95; PULSE 83
[2019-01-16] MEDS: ENOXAPARIN 40 MG/0.4 ML SYRINGE SQ SCH (09:09)
[2019-01-16] MEDS: AMOXIC-POT CLAV 875-125MG 1 EACH TAB PO SCH (09:09)
--- NOTE | 2019-01-16 11:59 | PN ---
PROGRESS NOTE DATE OF SERVICE: 01/16/2019 REASON FOR FOLLOWUP: Acute suppurative appendicitis with secondary peritonitis. INTERVAL HISTORY: The patient is currently afebrile. No fever has been recorded since yesterday. The patient denies having any chest pain, shortness of breath. No cough. No nausea. No vomiting. No abdominal pain. Overall feeling better and wishes to go home. Antibiotic was switched over yesterday to oral Augmentin as the patient lost his IV by the Surgery. PHYSICAL EXAMINATION: Blood pressure is 150/95 with a pulse of 83, temperature 98.8. He is 94% on room air. General description is a middle-aged male up in the chair, in no distress. RESPIRATORY SYSTEM: Unlabored breathing, clear to auscultation anteriorly. HEART: S1, S2. Regular rate and rhythm. ABDOMEN: Soft, no tenderness. LABS: Hemoglobin 12.1, white count of 8.2, BUN of 13, creatinine 0.81. DIAGNOSTIC IMPRESSION AND PLAN: Patient with acute suppurative appendicitis, status post laparoscopic appendectomy. Patient responded to Unasyn. Antibiotic switched to Augmentin to confirm the attending. followup. Continue supportive care. MMODL / IJN: [id number] /
--- NOTE | 2019-01-16 13:25 | P.DS ---
Providers Date of admission: 01/14/19 10:32 Expected date of discharge: 01/16/19 Attending physician: Rj Echols Consults: 01/13/19 11:07 Consult Physician Routine Consulting Provider: Brain Maxwell Consult Reason/Comments: Medical management Do you want consulting provider notified?: Yes Consult Physician Routine Consulting Provider: Filippo Wilder Consult Reason/Comments: Appendicitis Do you want consulting provider notified?: Yes Primary care physician: Stated None Hospital Course: This is a 43-year-old male who underwent laparoscopic appendectomy for acute appendicitis with perforation. Patient well postoperatively. Please see hospital chart for details. Procedures: Laparoscopic appendectomy Patient Condition at Discharge: Serious Plan - Discharge Summary Discharge Rx Participant: No New Discharge Prescriptions: New Docusate [Colace] 100 mg PO BID #20 capsule HYDROcodone/APAP 5-325MG [[place] 5-325] 1 tab PO Q6HR PRN #10 tab PRN Reason: Pain Amoxic-Pot Clav 875-125Mg [Augmentin 875-125] 1 tab PO Q12HR #20 tablet Discharge Medication List Amoxic-Pot Clav 875-125Mg [Augmentin 875-125] 1 tab PO Q12HR #20 tablet 01/16/19 [Rx] Docusate [Colace] 100 mg PO BID #20 capsule 01/16/19 [Rx] HYDROcodone/APAP 5-325MG [[place] 5-325] 1 tab PO Q6HR PRN #10 tab 01/16/19 [Rx] Follow up Appointment(s)/Referral(s): None,Stated [Primary Care Provider] - 1-2 days Filippo Wilder MD [STAFF PHYSICIAN] - 01/26/19 11:45 am Rj Echols MD [STAFF PHYSICIAN] - 01/22/19 3:30 pm (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
--- NOTE | 2019-01-16 16:00 | P.PN ---
Subjective 43-year-old male admitted for appendicitis and ruptured appendix patient is on Zosyn clinically doing well no overnight events patient's crackles improved. No further intervention at this time medically stable to be discharged. Only has minimal pain in the right lower quadrant. 01/15/2019 Patient has a low-grade fever patient continuous tube and antibiotics is being managed by infectious disease patient's white blood cell count has come down 01/16/2019 patient is clinically doing well medically stable to discharge antibiotics as per infectious disease Constitutional: Denied any fatigue denied any fever. Cardio vascular: denied any chest pain, palpitations Gastrointestinal denied any nausea vomiting Pulmonary: Denied any shortness of breath cough Neurologic denied any new focal deficits All inpatient medications were reviewed and appropriate changes in these medications as dictated in the interval history and assessment and plan. Objective - Vital Signs Vital signs: Vital Signs Temp 98.8 F 01/16/19 07:00 Pulse 83 01/16/19 09:07 Resp 16 01/16/19 07:00 BP 150/95 01/16/19 09:07 Pulse Ox 94 L 01/16/19 07:00 Intake & Output 01/15/19 01/16/19 01/16/19 18:59 06:59 18:59 Intake Total 420 660 Balance 420 660 Intake: Oral 420 660 Other: # Voids 3 1 - Exam PHYSICAL EXAMINATION: GENERAL: The patient is alert and oriented x3, not in any acute distress. Obese HEENT: Pupils are round and equally reacting to light. EOMI. No scleral icterus. No conjunctival pallor. Normocephalic, atraumatic. No pharyngeal erythema. No thyromegaly. CARDIOVASCULAR: S1 and S2 present. No murmurs, rubs, or gallops. PULMONARY: Chest is clear to auscultation, no wheezing or crackles. ABDOMEN: Soft, surgical site areas clean, sluggish bowel sounds MUSCULOSKELETAL: No joint swelling or deformity. EXTREMITIES: No cyanosis, clubbing, or pedal edema. NEUROLOGICAL: Gross neurological examination did not reveal any focal deficits. SKIN: No rashes. - Labs CBC & Chem 7: 01/15/19 10:35 01/15/19 10:35 Labs: Microbiology - Last 24 Hours (Table) 01/15/19 10:35 Blood Culture - Preliminary Blood No Growth after 24 hours Assessment and Plan Plan: -Acute appendicitis ruptured appendix: Antibiotics as per infectious disease -Nicotine abuse: Counseling was provided -Obesity: Counseling was provided
== END 2019-01-16 14:00 | disposition home or self-care (01) | DRG 339 ==
LOC: EC → 4SSUR 03:15 → OBSVTOIN 01-14 10:32
PROVIDERS: ADMIT Surgery; ATTEND Surgery
PROC: 0DTJ4ZZ Resection of Appendix, Percutaneous Endoscopic Approach (ICD-10-PCS; principal; 2019-01-13 13:50)
DX: K35.32 Acute appendicitis with perforation, localized peritonitis, and gangrene, without abscess (principal); J98.11 Atelectasis; Z68.41 Body mass index [BMI] 40.0-44.9, adult; F17.200 Nicotine dependence, unspecified, uncomplicated; Z83.3 Family history of diabetes mellitus; E66.9 Obesity, unspecified; Z71.3 Dietary counseling and surveillance; Z71.6 Tobacco abuse counseling
CPT/HCPCS: 36415; 74018; 74177; 80048; 80053; 81001; 82150; 83690; 85025; 87040; 88304; 96361; 96365; 96366; 96372; 96375; 96376; 99285

== ENCOUNTER 2021-11-26 06:17 | Emergency (ER) | payer OTHER ==
[2021-11-26 06:31] VITALS: TEMP 98
[2021-11-26] MEDS ORDERED: ONDANSETRON 4 MG/2 ML VIAL IVP STA (07:40)
[2021-11-26] MEDS ORDERED: KETOROLAC 15 MG/ML 1 ML VIAL IVP STA (07:40)
[2021-11-26 07:55] LABS: Basophils % (A) 1 %; Eosinophils # (A) 0.1 k/uL (0-0.7); Eosinophils % (A) 2 %; HCT 46.4 % (39.0-53.0); HGB 14.6 gm/dL (13.0-17.5); Lymphocytes # (A) 2.3 k/uL (1.0-4.8); Lymphocytes % (A) 28 %; MCH 29.9 pg (25.0-35.0); MCHC 31.5 g/dL (31.0-37.0); Mean Platelet Volume 7.5; Monocytes # (A) 0.8 k/uL (0-1.0); Monocytes % (A) 9 %; Neutrophils # (A) 4.8 k/uL (1.3-7.7); Neutrophils % (A) 58 %; Platelet Count 325 k/uL (150-450); RBC 4.88 m/uL (4.30-5.90); RDW 15.1 % (11.5-15.5); WBC 8.3 k/uL (3.8-10.6)
[2021-11-26 07:56] LABS: ALT 34 U/L (4-49); AST 24 U/L (17-59); African American GFR (CKD) >90 (>60 ml/min/1.73 sqM); Albumin 3.9 g/dL (3.5-5.0); Alkaline Phosphatase 88 U/L (38-126); Anion Gap 6 mmol/L; Blood Urea Nitrogen 14 mg/dL (9-20); Calcium 8.9 mg/dL (8.4-10.2); Carbon Dioxide 24 mmol/L (22-30); Chloride 108 mmol/L (98-107); Glucose 208 mg/dL (74-99); Non-African American GFR(CKD) >90 (>60 ml/min/1.73 sqM); Potassium 4.7 mmol/L (3.5-5.1); Sodium 138 mmol/L (137-145); Total Bilirubin 0.5 mg/dL (0.2-1.3); Total Protein 7.7 g/dL (6.3-8.2)
--- NOTE | 2021-11-26 08:01 | ED ---
Back Pain HPI - General Chief Complaint: Back Pain/Injury Stated Complaint: Abd Pain Time Seen by Provider: 11/26/21 07:44 Source: patient, RN notes reviewed Limitations: no limitations - History of Present Illness Initial Comments: 46-year-old male with a history of kidney stones recently who states he woke up from sleep this morning with complaints of left-sided low back and flank pain. Does have some discomfort over the suprapubic region. He states it was sharp moderate he had an episode nausea vomiting with it. No dysuria no hematuria no fevers chills or sweats. He states it feels exactly like his previous episode. No other current complaints or modifying factors MD Complaint: back pain - Related Data Previous Rx's Medication Instructions Recorded Amoxic-Pot Clav 875-125Mg 1 tab PO Q12HR #20 tablet 01/16/19 [Augmentin 875-125] Docusate [Colace] 100 mg PO BID #20 capsule 01/16/19 HYDROcodone/APAP 5-325MG [[place] 1 tab PO Q6HR PRN #10 tab 01/16/19 5-325] Ibuprofen 800 mg PO Q6HR PRN #20 tablet 11/26/21 Tamsulosin HCl [Flomax] 0.4 mg PO DAILY #7 capsule 11/26/21 Allergies Allergy/AdvReac Type Severity Reaction Status Date / Time No Known Allergies Allergy Verified 11/26/21 06:30 Review of Systems ROS Statement: Those systems with pertinent positive or pertinent negative responses have been documented in the HPI. ROS Other: All systems not noted in ROS Statement are negative. Past Medical History Past Medical History: No Reported History Additional Past Medical History / Comment(s): Bronchitis, kindey stones History of Any Multi-Drug Resistant Organisms: None Reported Past Surgical History: No Surgical Hx Reported Additional Past Surgical History / Comment(s): L leg fractures-closed reduction with anesthesia. Past Anesthesia/Blood Transfusion Reactions: No Reported Reaction Past Psychological History: No Psychological Hx Reported Smoking Status: Current every day smoker Past Alcohol Use History: None Reported Past Drug Use History: None Reported - Past Family History Father History Unknown: Yes Additional Family Medical History / Comment(s): Pt does not know who father is. Mother Family Medical History: Diabetes Mellitus General Exam - General Exam Comments Initial Comments: This is a well-developed well-nourished awake alert oriented 3 male Limitations: no limitations General appearance: alert, anxious Head exam: Present: atraumatic, normocephalic, normal inspection Eye exam: Present: normal appearance, PERRL, EOMI. Absent: scleral icterus, conjunctival injection, periorbital swelling ENT exam: Present: normal exam, mucous membranes moist Neck exam: Present: normal inspection. Absent: tenderness, meningismus, lymphadenopathy Respiratory exam: Present: normal lung sounds bilaterally. Absent: respiratory distress, wheezes, rales, rhonchi, stridor Cardiovascular Exam: Present: regular rate, normal rhythm, normal heart sounds. Absent: systolic murmur, diastolic murmur, rubs, gallop, clicks GI/Abdominal exam: Present: soft, tenderness (Mild suprapubic tenderness), normal bowel sounds. Absent: distended, guarding, rebound, rigid Rectal exam: Present: deferred exam: Present: other (No pain) Extremities exam: Present: normal inspection, full ROM, normal capillary refill. Absent: tenderness, pedal edema, joint swelling, calf tenderness Back exam: Present: normal inspection, CVA tenderness (L) (Mild left CVA tenderness palpation/percussion) Neurological exam: Present: alert, oriented X3, CN II-XII intact Psychiatric exam: Present: normal affect, normal mood Skin exam: Present: warm, dry, intact, normal color. Absent: rash Course Vital Signs 11/26/21 11/26/21 06:29 08:49 Temperature 98 F Pulse Rate 92 85 Respiratory 18 16 Rate Blood Pressure 154/88 139/84 O2 Sat by Pulse 96 95 Oximetry Medical Decision Making - Medical Decision Making Patient did get relief from the medication given. The clinical presentation is consistent with a kidney stone and renal colic. Does have a small amount of blood seen in the urine and UA. He'll be discharged on appropriate pain medication as well as Flomax. He is in agreement with this he will follow-up w ith his doctor return when necessary - Lab Data Result diagrams: 11/26/21 07:32 11/26/21 07:32 Lab Results 11/26/21 11/26/21 11/26/21 Range/Units 07:32 07:32 07:32 WBC 8.3 (3.8-10.6) k/uL RBC 4.88 (4.30-5.90) m/uL Hgb 14.6 (13.0-17.5) gm/dL Hct 46.4 (39.0-53.0) % MCV 95.0 (80.0-100.0) fL MCH 29.9 (25.0-35.0) pg MCHC 31.5 (31.0-37.0) g/dL RDW 15.1 (11.5-15.5) % Plt Count 325 (150-450) k/uL MPV 7.5 Neutrophils % 58 % Lymphocytes % 28 % Monocytes % 9 % Eosinophils % 2 % Basophils % 1 % Neutrophils # 4.8 (1.3-7.7) k/uL Lymphocytes # 2.3 (1.0-4.8) k/uL Monocytes # 0.8 (0-1.0) k/uL Eosinophils # 0.1 (0-0.7) k/uL Basophils # 0.0 (0-0.2) k/uL Sodium 138 (137-145) mmol/L Potassium 4.7 (3.5-5.1) mmol/L Chloride 108 H (98-107) mmol/L Carbon Dioxide 24 (22-30) mmol/L Anion Gap 6 mmol/L BUN 14 (9-20) mg/dL Creatinine 0.78 (0.66-1.25) mg/dL Est GFR (CKD-EPI)AfAm >90 (>60 ml/min/1.73 sqM) Est GFR (CKD-EPI)NonAf >90 (>60 ml/min/1.73 sqM) Glucose 208 H (74-99) mg/dL Calcium 8.9 (8.4-10.2) mg/dL Total Bilirubin 0.5 (0.2-1.3) mg/dL AST 24 (17-59) U/L ALT 34 (4-49) U/L Alkaline Phosphatase 88 (38-126) U/L Total Protein 7.7 (6.3-8.2) g/dL Albumin 3.9 (3.5-5.0) g/dL Urine Color Yellow Urine Appearance Clear (Clear) Urine pH 5.0 (5.0-8.0) Ur Specific [place] 1.029 (1.001-1.035) Urine Protein Trace H (Negative) Urine Glucose (UA) 1+ H (Negative) Urine Ketones Negative (Negative) Urine Blood Negative (Negative) Urine Nitrite Negative (Negative) Urine Bilirubin Negative (Negative) Urine Urobilinogen <2.0 (<2.0) mg/dL Ur Leukocyte Esterase Small H (Negative) Urine RBC 3 (0-5) /hpf Urine WBC 4 (0-5) /hpf Ur Squamous Epith Cells 2 (0-4) /hpf Hyaline Casts 1 (0-2) /lpf Urine Mucus Few H (None) /hpf - Radiology Data Radiology results: report reviewed (Imaging reviewed no acute findings), image reviewed Disposition Clinical Impression: Renal colic on left side, Kidney stone on left side Disposition: HOME SELF-CARE Condition: Good Instructions (If sedation given, give patient instructions): Kidney Stones (ED), Flank Pain (ED), How to Strain Your Urine (ED), Renal Colic (ED) Prescriptions: Tamsulosin HCl [Flomax] 0.4 mg PO DAILY #7 capsule Ibuprofen 800 mg PO Q6HR PRN #20 tablet PRN Reason: Pain Is patient prescribed a controlled substance at d/c from ED?: No Referrals: None,Stated [Primary Care Provider] - 1-2 days Decision Date: 11/26/21 Decision Time: 09:58
--- NOTE | 2021-11-26 08:27 | XR ---
EXAMINATION TYPE: XR KUB DATE OF EXAM: 11/26/2021 8:10 AM INDICATION: Patient age:Male; 46 years old; Reason for study: Flank pain;. COMPARISON: None. TECHNIQUE: One radiographic view of the abdomen was obtained. FINDINGS: The bowel gas pattern is nonspecific without dilated loops of small or large bowel. There i s no evidence for organomegaly or pneumoperitoneum. The osseous structures are intact. No abnormal calcifications are present. Fecal material and gas are demonstrated throughout the colon and rectum. IMPRESSION: 1. Nonspecific bowel gas pattern without radiographic evidence for acute process. 2. No radiographic evidence of nephrolithiasis.
[2021-11-26 08:51] VITALS: BP 139/84; PULSE 85; RESP 16
[2021-11-26 09:10] LABS: Appearance,Urine Clear (Clear); Bilirubin,Urine Negative (Negative); Blood,Urine Negative (Negative); Color,Urine Yellow; Glucose,Urine (UA) 1+ (Negative); Hyaline Casts,Urine 1 /lpf (0-2); Ketones,Urine Negative (Negative); Leukocyte Esterase,Urine Small (Negative); Mucus,Urine Few /hpf; Nitrite,Urine Negative (Negative); Protein,Urine Trace (Negative); RBC,Urine 3 /hpf (0-5); Specific Gravity,Urine 1.029 (1.001-1.035); Squamous Epithelial Cell,Urine 2 /hpf (0-4); Urobilinogen,Urine <2.0 mg/dL (<2.0); WBC,Urine 4 /hpf (0-5)
[2021-11-26] MEDS ORDERED: IBUPROFEN 800 MG TAB PO STA (10:14)
== END 2021-11-26 10:11 | disposition home or self-care (01) ==
LOC: EC 06:17
DX: N20.0 Calculus of kidney (principal); F17.200 Nicotine dependence, unspecified, uncomplicated
CPT/HCPCS: 36415; 80053; 85025; 81001; 74018; 99284; 96374; 96375; J2405; J1885

== ENCOUNTER 2022-01-21 14:15 | Emergency (ER) | payer OTHER ==
[2022-01-21 14:19] VITALS: BP 151/81; PULSE 92; RESP 20; TEMP 98.2
[2022-01-21] MEDS ORDERED: KETOROLAC 15 MG/ML 1 ML VIAL IM STA (14:39)
--- NOTE | 2022-01-21 15:20 | XR ---
EXAMINATION TYPE: XR KUB DATE OF EXAM: 01/21/2022 COMPARISON: 11/26/2021 HISTORY: Back pain TECHNIQUE: 2 views upright FINDINGS: 2 views upright show no central intestinal obstruction or pneumoperitoneum. Fecal pattern i s normal. No evidence of a mass. There are no pathologic calcifications over the kidneys. Lung bases are clear. IMPRESSION: Nonacute abdomen. No adverse change.
--- NOTE | 2022-01-21 15:21 | XR ---
EXAMINATION TYPE: XR lumbar spine 2 or 3V DATE OF EXAM: 01/21/2022 COMPARISON: NONE HISTORY: Back pain TECHNIQUE: 3 views FINDINGS: Lumbar vertebrae are normal alignment. Posterior elements are intact. Sacroiliac joints are intact. Disc spaces are normal. IMPRESSION: Negative lumbar spine exam. No fracture.
[2022-01-21 16:08] LABS: Appearance,Urine Cloudy (Clear); Bacteria,Urine Rare /hpf; Bilirubin,Urine Negative (Negative); Blood,Urine Trace (Negative); Color,Urine Yellow; Glucose,Urine (UA) 1+ (Negative); Hyaline Casts,Urine 1 /lpf (0-2); Ketones,Urine Negative (Negative); Leukocyte Esterase,Urine Small (Negative); Mucus,Urine Occasional /hpf; Nitrite,Urine Negative (Negative); PH, Urine 5.5 (5.0-8.0); Protein,Urine Trace (Negative); RBC,Urine 3 /hpf (0-5); Specific Gravity,Urine 1.029 (1.001-1.035); Squamous Epithelial Cell,Urine 9 /hpf (0-4); Urobilinogen,Urine <2.0 mg/dL (<2.0); WBC,Urine 5 /hpf (0-5)
[2022-01-21] MEDS ORDERED: DEXAMETHASONE SOD PHOSPHATE 10 MG/ML 1 ML VIAL IM STA (16:16)
[2022-01-21] MEDS ORDERED: ORPHENADRINE 30 MG/ML 2 ML VIAL IM STA (16:16)
--- NOTE | 2022-01-21 16:21 | ED ---
Back Pain HPI - General Chief Complaint: Back Pain/Injury Stated Complaint: Back Pain Time Seen by Provider: 01/21/22 14:26 Source: patient Limitations: no limitations - History of Present Illness Initial Comments: Patient is a 46-year-old male presenting with chief complaint of back pain. 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 Patient has a history of kidney stones, states that this pain feels different as it is centralized in the lower back and not on one side. He denies any dysuria, hematuria, urgency, frequency. Denies any nausea or vomiting. States that he just can't get comfortable. Denies any chest pain, shortness of breath, abdominal pain, fever, chills, injury or trauma, numbness, tingling, loss of bowel or bladder control, saddle paresthesia. - Related Data Previous Rx's Medication Instructions Recorded Amoxic-Pot Clav 875-125Mg 1 tab PO Q12HR #20 tablet 01/16/19 [Augmentin 875-125] Docusate [Colace] 100 mg PO BID #20 capsule 01/16/19 HYDROcodone/APAP 5-325MG [[place] 1 tab PO Q6HR PRN #10 tab 01/16/19 5-325] Ibuprofen 800 mg PO Q6HR PRN #20 tablet 11/26/21 Tamsulosin HCl [Flomax] 0.4 mg PO DAILY #7 capsule 11/26/21 Cyclobenzaprine [Flexeril] 10 mg PO TID PRN #20 tab 01/21/22 Allergies Allergy/AdvReac Type Severity Reaction Status Date / Time No Known Allergies Allergy Verified 01/21/22 14:19 Review of Systems ROS Statement: Those systems with pertinent positive or pertinent negative responses have been documented in the HPI. ROS Other: All systems not noted in ROS Statement are negative. Past Medical History Past Medical History: No Reported History Additional Past Medical History / Comment(s): Bronchitis, kindey stones History of Any Multi-Drug Resistant Organisms: None Reported Past Surgical History: No Surgical Hx Reported Additional Past Surgical History / Comment(s): L leg fractures-closed reduction with anesthesia. Past Anesthesia/Blood Transfusion Reactions: No Reported Reaction Past Psychological History: No Psychological Hx Reported Smoking Status: Current every day smoker Past Alcohol Use History: None Reported Past Drug Use History: None Reported - Past Family History Father History Unknown: Yes Additional Family Medical History / Comment(s): Pt does not know who father is. Mother Family Medical History: Diabetes Mellitus General Exam Limitations: no limitations General appearance: alert, in no apparent distress Head exam: Present: atraumatic, normocephalic, normal inspection Eye exam: Present: normal appearance, EOMI. Absent: scleral icterus Neck exam: Present: normal inspection Respiratory exam: Present: normal lung sounds bilaterally. Absent: respiratory distress, wheezes, rales, rhonchi, stridor Cardiovascular Exam: Present: regular rate, normal rhythm, normal heart sounds. Absent: systolic murmur, diastolic murmur, rubs, gallop, clicks GI/Abdominal exam: Present: soft, normal bowel sounds. Absent: distended, tenderness, guarding, rebound, rigid Back exam: Present: normal inspection, full ROM, paraspinal tenderness. Absent: CVA tenderness (R), CVA tenderness (L), vertebral tenderness Neurological exam: Present: alert, oriented X3, CN II-XII intact Psychiatric exam: Present: normal affect, normal mood Skin exam: Present: warm, dry, intact, normal color. Absent: rash Course Vital Signs 01/21/22 14:17 Temperature 98.2 F Pulse Rate 92 Respiratory 20 Rate Blood Pressure 151/81 O2 Sat by Pulse 98 Oximetry Medical Decision Making - Medical Decision Making Patient is a 46-year-old male presenting with chief complaint of back pain. Located primarily in the mid lower back, no red flag symptoms. He has a history of kidney stones. On examination there is paraspinal muscle tenderness, no vertebral body tenderness. Full range of motion of the back lower extremities. No numbness or tingling. Urine shows trace blood and 3 RBC, KUB shows normal fecal pattern, no evidence of a mass, no pathologic calcifications over the kidneys. Nephrolithiasis is unlikely with these findings. Lumbar spine x-rays negative. Patient is given Toradol, Norflex, Decadron. He reports improvement of his symptoms. Patient will be discharged with prescription for cyclobenzaprine. Follow-up with PCP this week. Report back to ER if any new or worsening symptoms. I discussed return parameters alarm symptoms. Answered all questions. Patient conveyed verbal understanding and agreed to the plan. My attending is Dr. Scruggs. - Lab Data Lab Results 01/21/22 Range/Units 15:22 Urine Color Yellow Urine Appearance Cloudy (Clear) Urine pH 5.5 (5.0-8.0) Ur Specific [place] 1.029 (1.001-1.035) Urine Protein Trace H (Negative) Urine Glucose (UA) 1+ H (Negative) Urine Ketones Negative (Negative) Urine Blood Trace H (Negative) Urine Nitrite Negative (Negative) Urine Bilirubin Negative (Negative) Urine Urobilinogen <2.0 (<2.0) mg/dL Ur Leukocyte Esterase Small H (Negative) Urine RBC 3 (0-5) /hpf Urine WBC 5 (0-5) /hpf Ur Squamous Epith Cells 9 H (0-4) /hpf Urine Bacteria Rare H (None) /hpf Hyaline Casts 1 (0-2) /lpf Urine Mucus Occasional H (None) /hpf Disposition Clinical Impression: Strain of lumbar region Disposition: HOME SELF-CARE Condition: Good Instructions (If sedation given, give patient instructions): Low Back Strain (ED), Acute Low Back Pain (ED), Lower Back Exercises (ED) Additional Instructions: Follow-up with PCP this week. Report back to ER if any new or worsening symptoms. Take medication as prescribed. This medication may make you drowsy, do not take before driving or operating heavy machinery. Prescriptions: Cyclobenzaprine [Flexeril] 10 mg PO TID PRN #20 tab PRN Reason: Spasms Is patient prescribed a controlled substance at d/c from ED?: No Referrals: None,Stated [Primary Care Provider] - 1-2 days Time of Disposition: 16:21
[2022-01-21] MEDS ORDERED: dexAMETHasone 2 MG TAB PO STA (16:26)
== END 2022-01-21 16:43 | disposition home or self-care (01) ==
LOC: EC 14:15
DX: S39.012A Strain of muscle, fascia and tendon of lower back, initial encounter (principal); F17.200 Nicotine dependence, unspecified, uncomplicated; X50.1XXA Overexertion from prolonged static or awkward postures, initial encounter; Y99.0 Civilian activity done for income or pay
CPT/HCPCS: 81001; 72100; 74018; 99283; 96372; J8540; J1885

== ENCOUNTER 2022-05-25 01:36 | Emergency (ER) | payer OTHER ==
[2022-05-25 01:42] VITALS: RESP 18; TEMP 98.6
[2022-05-25] MEDS ORDERED: MORPHINE SULFATE 4 MG/ML SYRINGE IV STA ×2 (01:57→03:43)
[2022-05-25] MEDS ORDERED: ONDANSETRON 4 MG/2 ML VIAL IVP STA (01:57)
[2022-05-25] MEDS ORDERED: SODIUM CHLORIDE 0.9% 1,000 ML IV STA (01:57)
[2022-05-25] MEDS ORDERED: KETOROLAC 15 MG/ML 1 ML VIAL IVP STA (01:57)
[2022-05-25 02:57] LABS: Basophils # (A) 0.1 k/uL (0-0.2); Basophils % (A) 1 %; Eosinophils # (A) 0.2 k/uL (0-0.7); Eosinophils % (A) 1 %; HCT 44.4 % (39.0-53.0); HGB 14.5 gm/dL (13.0-17.5); Hypochromasia Slight; Lymphocytes # (A) 4.6 k/uL (1.0-4.8); Lymphocytes % (A) 34 %; MCH 30.2 pg (25.0-35.0); MCHC 32.6 g/dL (31.0-37.0); MCV 92.8 fL (80.0-100.0); Mean Platelet Volume 8.9; Monocytes # (A) 0.8 k/uL (0-1.0); Monocytes % (A) 6 %; Neutrophils # (A) 7.9 k/uL (1.3-7.7); Neutrophils % (A) 57 %; Platelet Count 336 k/uL (150-450); RBC 4.79 m/uL (4.30-5.90); RDW 14.8 % (11.5-15.5); WBC 13.8 k/uL (3.8-10.6)
[2022-05-25 03:06] LABS: ALT 39 U/L (4-49); African American GFR (CKD) >90 (>60 ml/min/1.73 sqM); Albumin 4.4 g/dL (3.5-5.0); Anion Gap 12 mmol/L; Blood Urea Nitrogen 11 mg/dL (9-20); Calcium 9.2 mg/dL (8.4-10.2); Carbon Dioxide 21 mmol/L (22-30); Chloride 105 mmol/L (98-107); Glucose 136 mg/dL (74-99); Non-African American GFR(CKD) >90 (>60 ml/min/1.73 sqM); Sodium 138 mmol/L (137-145); Total Bilirubin 0.5 mg/dL (0.2-1.3); Total Protein 7.9 g/dL (6.3-8.2)
--- NOTE | 2022-05-25 03:09 | ED ---
General Adult HPI - General Source: patient Mode of arrival: ambulatory <Shin Yo - Last Filed: 05/25/22 04:37> <Fawad Villeda - Last Filed: 05/25/22 05:29> - General Chief complaint: Urogenital Stated complaint: LT flank pain Time Seen by Provider: 05/25/22 01:51 - History of Present Illness Initial comments: This is a pleasant 46-year-old male with a history of kidney stones. He presents today with sudden onset of left flank pain which started a few hours ago. Patient states it woke him up from sleep. Patient then had an episode of gross hematuria. Patient states he passed a kidney stone a few months ago. Apparently the patient was advised to make dietary changes but admittedly has not done that. Patient is complaining some mild nausea but no vomiting. Pain does radiate into the left flank but not into the abdomen. No headache, no fever or chills, no changes in vision or hearing, no sore throat or difficulty with speech, no neck pain, no chest pain or shortness of breath, no abdominal pain, no nausea or vomiting, no changes in urination or bowel movements, no numbness or tingling, no extremity pain, no skin rashes or lesions. Past medical, surgical, social, and family history reviewed. (Shin Yo) - Related Data Previous Rx's Medication Instructions Recorded Amoxic-Pot Clav 875-125Mg 1 tab PO Q12HR #20 tablet 01/16/19 [Augmentin 875-125] Docusate [Colace] 100 mg PO BID #20 capsule 01/16/19 HYDROcodone/APAP 5-325MG [[place] 1 tab PO Q6HR PRN #10 tab 01/16/19 5-325] Ibuprofen 800 mg PO Q6HR PRN #20 tablet 11/26/21 Tamsulosin HCl [Flomax] 0.4 mg PO DAILY #7 capsule 11/26/21 Cyclobenzaprine [Flexeril] 10 mg PO TID PRN #20 tab 01/21/22 HYDROcodone/APAP 5-325MG [[place] 1 tab PO Q6HR PRN 3 Days #12 tab 05/25/22 5-325] Naproxen [Naprosyn] 375 mg PO Q12HR PRN #20 tablet 05/25/22 Ondansetron Odt [Zofran Odt] 4 mg PO Q6HR PRN #12 tab 05/25/22 Sulfamethox-Tmp 800-160Mg [Bactrim 1 tab PO Q12HR 14 Days #28 tab 05/25/22 DS 800-160 mg] Tamsulosin [Flomax] 0.4 mg PO DAILY #10 cap 05/25/22 Allergies Allergy/AdvReac Type Severity Reaction Status Date / Time No Known Allergies Allergy Verified 05/25/22 01:42 Review of Systems ROS Other: All systems not noted in ROS Statement are negative. <SrinathShin - Last Filed: 05/25/22 04:37> ROS Other: All systems not noted in ROS Statement are negative. <Fawad Villeda - Last Filed: 05/25/22 05:29> ROS Statement: Those systems with pertinent positive or pertinent negative responses have been documented in the HPI. Past Medical History Past Medical History: No Reported History Additional Past Medical History / Comment(s): Bronchitis, kindey stones History of Any Multi-Drug Resistant Organisms: None Reported Past Surgical History: No Surgical Hx Reported Additional Past Surgical History / Comment(s): L leg fractures-closed reduction with anesthesia. Past Anesthesia/Blood Transfusion Reactions: No Reported Reaction Past Psychological History: No Psychological Hx Reported Smoking Status: Current every day smoker Past Alcohol Use History: None Reported Past Drug Use History: None Reported - Past Family History Father History Unknown: Yes Additional Family Medical History / Comment(s): Pt does not know who father is. Mother Family Medical History: Diabetes Mellitus <Shin Yo - Last Filed: 05/25/22 04:37> General Exam Limitations: no limitations General appearance: in distress Head exam: Present: atraumatic, normocephalic, normal inspection Eye exam: Present: normal appearance, PERRL, EOMI. Absent: scleral icterus, conjunctival injection, periorbital swelling ENT exam: Present: normal exam, mucous membranes moist Neck exam: Present: normal inspection, full ROM. Absent: tenderness, meningismus, lymphadenopathy Respiratory exam: Present: normal lung sounds bilaterally. Absent: respiratory distress, wheezes, rales, rhonchi, stridor Cardiovascular Exam: Present: regular rate, normal rhythm, normal heart sounds. Absent: systolic murmur, diastolic murmur, rubs, gallop, clicks GI/Abdominal exam: Present: soft, normal bowel sounds. Absent: distended, tenderness, guarding, rebound, rigid Extremities exam: Present: normal inspection, full ROM, normal capillary refill. Absent: tenderness, pedal edema, joint swelling, calf tenderness Back exam: Present: normal inspection, full ROM, CVA tenderness (L). Absent: CVA tenderness (R) Neurological exam: Present: alert, oriented X3, CN II-XII intact Psychiatric exam: Present: normal affect, normal mood Skin exam: Present: warm, dry, intact, normal color. Absent: rash <Shin Yo - Last Filed: 05/25/22 04:37> Course <Shin Yo - Last Filed: 05/25/22 04:37> Vital Signs 05/25/22 05/25/22 01:39 04:50 Temperature 98.6 F Pulse Rate 95 88 Respiratory 18 18 Rate Blood Pressure 150/95 112/73 O2 Sat by Pulse 98 96 Oximetry - Reevaluation(s) Reevaluation #1: 05/25/22 03:34 Medical record is reviewed Symptoms are improved here in the emergency department Patient is informed of results and questions answered Patient in no distress 05/25/22 03:43 Patient still having some pain. I did agree to give the patient another dose of morphine. Still awaiting urinalysis. Discussed all findings with the patient. Discussed treatment plan. (Shin Yo) Medical Decision Making - Lab Data Result diagrams: 05/25/22 02:29 05/25/22 02:29 - Radiology Data Radiology results: report reviewed, image reviewed <Shin Yo - Last Filed: 05/25/22 04:37> - Lab Data Result diagrams: 05/25/22 02:29 05/25/22 02:29 <Fawad Villeda - Last Filed: 05/25/22 05:29> - Medical Decision Making Patient septostomy most consistent with ureterolithiasis. Does not appear to be consistent with infectious or vascular etiology. No consistent with cardiopulmonary etiology. Computed tomography scan ordered. We'll have the patient strain the urine. The stone is all the way down to the UVJ, discussed likelihood of stone passage. Patient be treated with anti- inflammatory medication, Flomax, pain medication, and when necessary nausea medication. Given follow-up with urology as is patient's second stone. All findings discussed with the patient. All questions answered. The case was discussed in detail with ED attending physician. Presentation, findings, treatment plan discussed in detail. Patient was told to return to the ER for any signs or symptoms worsen. Told to return immediately if any other problems arise. All questions answered. Treatment plan discussed. Patient in agreement Every effort has been made to ensure accuracy of this dictation. However, due to the limitations of electronic medical records and dictation devices, errors in charting still occur. [place] Specialist Dr. Villeda ([facility]) Urinalysis showed signs concerning for possible mild infection. Therefore we will start the patient on antibiotics in addition to the plan above. Will be given a dose of Rocephin prior to discharge and prescribed Bactrim DS for 14 days at home. Discussed this with the patient and he was in agreement this plan. (Fawad Villeda) - Lab Data Lab Results 05/25/22 05/25/22 05/25/22 Range/Units 02:29 02:29 04:50 WBC 13.8 H (3.8-10.6) k/uL RBC 4.79 (4.30-5.90) m/uL Hgb 14.5 (13.0-17.5) gm/dL Hct 44.4 (39.0-53.0) % MCV 92.8 (80.0-100.0) fL MCH 30.2 (25.0-35.0) pg MCHC 32.6 (31.0-37.0) g/dL RDW 14.8 (11.5-15.5) % Plt Count 336 (150-450) k/uL MPV 8.9 Neutrophils % 57 % Lymphocytes % 34 % Monocytes % 6 % Eosinophils % 1 % Basophils % 1 % Neutrophils # 7.9 H (1.3-7.7) k/uL Lymphocytes # 4.6 (1.0-4.8) k/uL Monocytes # 0.8 (0-1.0) k/uL Eosinophils # 0.2 (0-0.7) k/uL Basophils # 0.1 (0-0.2) k/uL Hypochromasia Slight Sodium 138 (137-145) mmol/L Potassium 4.8 (3.5-5.1) mmol/L Chloride 105 (98-107) mmol/L Carbon Dioxide 21 L (22-30) mmol/L Anion Gap 12 mmol/L BUN 11 (9-20) mg/dL Creatinine 0.75 (0.66-1.25) mg/dL Est GFR (CKD-EPI)AfAm >90 (>60 ml/min/1.73 sqM) Est GFR (CKD-EPI)NonAf >90 (>60 ml/min/1.73 sqM) Glucose 136 H (74-99) mg/dL Calcium 9.2 (8.4-10.2) mg/dL Total Bilirubin 0.5 (0.2-1.3) mg/dL AST 35 (17-59) U/L ALT 39 (4-49) U/L Alkaline Phosphatase 82 (38-126) U/L Total Protein 7.9 (6.3-8.2) g/dL Albumin 4.4 (3.5-5.0) g/dL Urine Color Yellow Urine Appearance Cloudy (Clear) Urine pH 5.5 (5.0-8.0) Ur Specific [place] 1.027 (1.001-1.035) Urine Protein 1+ H (Negative) Urine Glucose (UA) Negative (Negative) Urine Ketones Negative (Negative) Urine Blood Large H (Negative) Urine Nitrite Negative (Negative) Urine Bilirubin Negative (Negative) Urine Urobilinogen 2.0 (<2.0) mg/dL Ur Leukocyte Esterase Moderate H (Negative) Urine RBC >182 H (0-5) /hpf Urine WBC 36 H (0-5) /hpf Ur Squamous Epith Cells 1 (0-4) /hpf Urine Bacteria Rare H (None) /hpf Urine Mucus Many H (None) /hpf - Radiology Data Patient has a 3 mm, obstructing calculus at the left UVJ with left-sided hydronephrosis and hydroureter. 3 x 2 similar fat-containing umbilical hernia. 1.5 cm hypodensity in the left adrenal gland unchanged from the previous study and consistent with benign disease. Atelectasis at right lung base. Note that the hydroureter and hydronephrosis are mild. (Shin Yo) Disposition Is patient prescribed a controlled substance at d/c from ED?: No Time of Disposition: 04:37 <Shin Yo - Last Filed: 05/25/22 04:37> <Fawad Villeda - Last Filed: 05/25/22 05:29> Clinical Impression: Ureterolithiasis, Umbilical hernia, Adrenal adenoma Disposition: HOME SELF-CARE Condition: Good Instructions (If sedation given, give patient instructions): Ureteral Stones (ED) Prescriptions: Sulfamethox-Tmp 800-160Mg [Bactrim DS 800-160 mg] 1 tab PO Q12HR 14 Days #28 tab Tamsulosin [Flomax] 0.4 mg PO DAILY #10 cap Naproxen [Naprosyn] 375 mg PO Q12HR PRN #20 tablet PRN Reason: Pain HYDROcodone/APAP 5-325MG [[place] 5-325] 1 tab PO Q6HR PRN 3 Days #12 tab PRN Reason: Pain Ondansetron Odt [Zofran Odt] 4 mg PO Q6HR PRN #12 tab PRN Reason: Nausea Referrals: Alok Mckeon MD [STAFF PHYSICIAN] - 05/29/22
[2022-05-25 03:19] LABS: AST 35 U/L (17-59); Alkaline Phosphatase 82 U/L (38-126); Potassium 4.8 mmol/L (3.5-5.1)
--- NOTE | 2022-05-25 03:24 | CT ---
EXAMINATION TYPE: CT abdomen pelvis wo con DATE OF EXAM: 05/25/2022 COMPARISON: 01/13/2019 HISTORY: Lt. flank pain. prior on PACS CT DLP: 2627 mGycm Automated exposure control for dose reduction was used. There is subsegmental atelectasis at the right lung base. Heart size is normal. Heart size is normal. No pericardial effusion. There is fatty infiltration of the liver. No discrete liver mass. Spleen is intact. There is no pancr eatic mass. While this are not dilated. Gallbladder appears normal. There is 1.5 cm hypodensity in the left adrenal gland unchanged and consistent with benign disease. Kidneys have normal size. There is mild left-sided hydronephrosis. There is a 3 mm calculus at the le ft ureterovesical junction. There is mild left-sided hydroureter. Bladder distends smoothly. There is 2 mm calculus lower pole left kidney. Right kidney appears normal. No retroperitoneal adenopathy. The lumbar vertebrae have normal alignment. Posterior elements are intact. Disc spaces are normal. No compression fracture. Bony pelvis is intact. The hip joints are intact. Appendix not well seen. No s ign of thickened appendix. No mesenteric edema. No ascites or free air. No sign of a bowel obstructio n. There is 3 x 2 cm fat-containing umbilical hernia. IMPRESSION: Obstructing calculus at the left ureterovesical junction with left-sided hydronephrosis and hydrouret er.
[2022-05-25] MEDS ORDERED: TAMSULOSIN 0.4 MG CAP.ER.24H PO STA (03:33)
[2022-05-25] MEDS ORDERED: SODIUM CHLORIDE 0.9% 1,000 ML IV ONE (03:34)
[2022-05-25 05:01] LABS: Appearance,Urine Cloudy (Clear); Bacteria,Urine Rare /hpf; Bilirubin,Urine Negative (Negative); Blood,Urine Large (Negative); Color,Urine Yellow; Glucose,Urine (UA) Negative (Negative); Ketones,Urine Negative (Negative); Leukocyte Esterase,Urine Moderate (Negative); Mucus,Urine Many /hpf; Nitrite,Urine Negative (Negative); PH, Urine 5.5 (5.0-8.0); Protein,Urine 1+ (Negative); RBC,Urine >182 /hpf (0-5); Specific Gravity,Urine 1.027 (1.001-1.035); Squamous Epithelial Cell,Urine 1 /hpf (0-4); WBC,Urine 36 /hpf (0-5)
[2022-05-25] MEDS ORDERED: cefTRIAXone IN SWFI 1,000 MG/10 ML SYRINGE IVP STA (05:26)
[2022-05-25 05:44] VITALS: BP 124/80; PULSE 82
== END 2022-05-25 05:52 | disposition home or self-care (01) ==
LOC: EC 01:36
DX: N20.1 Calculus of ureter (principal); K42.9 Umbilical hernia without obstruction or gangrene; D35.02 Benign neoplasm of left adrenal gland
CPT/HCPCS: 36415; 80053; 85025; 81001; 87086; 74176; 99284; 96374; 96375 ×3; 96376; 96361 ×3; J2270; J2405; J0696; J1885

== ENCOUNTER 2024-01-20 00:25 | Emergency (ER) | payer OTHER ==
--- NOTE | 2024-01-20 00:50 | ED ---
Abdominal Pain HPI - General Chief Complaint: Abdominal Pain Stated Complaint: Left side pain Time Seen by Provider: 01/20/24 00:30 Source: patient, RN notes reviewed Mode of arrival: wheelchair Limitations: no limitations - History of Present Illness Initial Comments: 48-year-old male presenting to the ED with chief complaint of flank pain. Patient reports he was in the shower when he started to experience pain of his left flank. Pain is constant in nature. Pain does not radiate. Patient also notes associated hematuria. No nausea or vomiting. No changes in bowel habits. No fever or chills. Patient does note a history of kidney stones and reports pain does feel similar to his history. No other complaints at this time. Denies chest pain shortness of breath. - Related Data Previous Rx's Medication Instructions Recorded Amoxic-Pot Clav 875-125Mg 1 tab PO Q12HR #20 tablet 01/16/19 [Augmentin 875-125] Docusate [Colace] 100 mg PO BID #20 capsule 01/16/19 HYDROcodone/APAP 5-325MG [[place] 1 tab PO Q6HR PRN #10 tab 01/16/19 5-325] Ibuprofen 800 mg PO Q6HR PRN #20 tablet 11/26/21 Tamsulosin HCl [Flomax] 0.4 mg PO DAILY #7 capsule 11/26/21 Cyclobenzaprine [Flexeril] 10 mg PO TID PRN #20 tab 01/21/22 HYDROcodone/APAP 5-325MG [[place] 1 tab PO Q6HR PRN 3 Days #12 tab 05/25/22 5-325] Naproxen [Naprosyn] 375 mg PO Q12HR PRN #20 tablet 05/25/22 Ondansetron Odt [Zofran Odt] 4 mg PO Q6HR PRN #12 tab 05/25/22 Sulfamethox-Tmp 800-160Mg [Bactrim 1 tab PO Q12HR 14 Days #28 tab 05/25/22 DS 800-160 mg] Tamsulosin [Flomax] 0.4 mg PO DAILY #10 cap 05/25/22 Cephalexin [Keflex] 500 mg PO Q6HR 7 Days #28 cap 01/20/24 HYDROcodone/APAP 5-325MG [[place] 5] 1 each PO Q6HR PRN #12 tab 01/20/24 Ondansetron Odt [Zofran Odt] 4 mg PO Q8HR PRN #10 tab 01/20/24 Tamsulosin [Flomax] 0.4 mg PO DAILY #7 cap 01/20/24 Allergies Allergy/AdvReac Type Severity Reaction Status Date / Time No Known Allergies Allergy Verified 01/20/24 00:26 Review of Systems ROS Statement: Those systems with pertinent positive or pertinent negative responses have been documented in the HPI. ROS Other: All systems not noted in ROS Statement are negative. Past Medical History Past Medical History: No Reported History Additional Past Medical History / Comment(s): Bronchitis, kindey stones History of Any Multi-Drug Resistant Organisms: None Reported Past Surgical History: No Surgical Hx Reported, Appendectomy Additional Past Surgical History / Comment(s): L leg fractures-closed reduction with anesthesia. Past Anesthesia/Blood Transfusion Reactions: No Reported Reaction Past Psychological History: No Psychological Hx Reported Smoking Status: Current every day smoker Past Alcohol Use History: None Reported Past Drug Use History: None Reported - Past Family History Father History Unknown: Yes Additional Family Medical History / Comment(s): Pt does not know who father is. Mother Family Medical History: Diabetes Mellitus General Exam Limitations: no limitations General appearance: alert Neck exam: Present: normal inspection Respiratory exam: Present: normal lung sounds bilaterally Cardiovascular Exam: Present: regular rate GI/Abdominal exam: Present: soft, normal bowel sounds, other (Left CVA tenderness to percussion.). Absent: distended, tenderness, guarding, rebound, rigid Neurological exam: Present: alert, oriented X3 Skin exam: Present: warm, dry Course Vital Signs 01/20/24 01/20/24 01/20/24 00:26 02:42 03:50 Temperature 99.3 F Pulse Rate 96 94 95 Respiratory 20 18 16 Rate Blood Pressure 112/75 144/93 124/77 O2 Sat by Pulse 96 95 94 L Oximetry 01/20/24 04:50 Temperature Pulse Rate 86 Respiratory 19 Rate Blood Pressure 108/68 O2 Sat by Pulse 95 Oximetry Medical Decision Making - Medical Decision Making Was pt. sent in by a medical professional or institution (, PA, STOPPER SETTER, urgent care, hospital, or residential...) When possible be specific @ -No Did you speak to anyone other than the patient for history (EMS, parent, family, police, friend...)? What history was obtained from this source @ -No Did you review nursing and triage notes (agree or disagree)? Why? @ -I reviewed and agree with nursing and triage notes Were old charts reviewed (outside hosp., previous admission, EMS record, old EKG, old radiological studies, urgent care reports/EKG's, residential records)? Report findings @ -No old charts were reviewed Differential Diagnosis (chest pain, altered mental status, abdominal pain women, abdominal pain men, vaginal bleeding, weakness, fever, dyspnea, syncope, headache, dizziness, GI bleed, back pain, seizure, CVA, palpatations, mental health, musculoskeletal)? @ -Differential Abdominal Pain Men: Appendicitis, cholecystitis, diverticulosis, ischemic bowel, pancreatitis, hepatitis, UTI, gastroenteritis, AAA, incarcerated hernia, bowel obstruction, constipation, inflammatory bowel, hepatitis, peptic ulcer disease, splenic infarction, perforated viscus, testicular torsion, this is not meant to be an all-inclusive list EKG interpreted by me (3pts min.). @ -None X-rays interpreted by me (1pt min.). @ -None done CT interpreted by me (1pt min.). @ -CT abdomen pelvis interpreted me showing mild left hydro nephrosis and hydroureter down to a 3 x 5 mm stone in the distal left ureter located approximately 6 cm from the UVJ. U/S interpreted by me (1pt. min.). @ -None done What testing was considered but not performed or refused? (CT, X-rays, U/S, labs)? Why? @ -None What meds were considered but not given or refused? Why? @ -None Did you discuss the management of the patient with other professionals (professionals i.e. , PA, STOPPER SETTER, lab, RT, psych nurse, social services specialist, turkey egg gatherer, teacher, chairman & chief executive officer, case consultant)? Give summary @ -Case discussed with Dr. Garcia, of Urology, who advises close outpatient follow-up with oral antibiotics. Was smoking cessation discussed for >3mins.? @ -No Was critical care preformed (if so, how long)? @ -No Were there social determinants of health that impacted care today? How? (Homelessness, low income, unemployed, alcoholism, drug addiction, transportation, low edu. Level, literacy, decrease access to med. care, prison, rehab)? @ -No Was there de-escalation of care discussed even if they declined (Discuss DNR or withdrawal of care, Hospice)? DNR status @ -No What co-morbidities impacted this encounter? (DM, HTN, Smoking, COPD, CAD, Cancer, CVA, ARF, Chemo, Hep., AIDS, mental health diagnosis, sleep apnea, morbid obesity)? @ -None Was patient admitted / discharged? Hospital course, mention meds given and route, prescriptions, significant lab abnormalities, going to OR and other pertinent info. @ -Discharge 48-year-old male presenting to the ED with acute onset of left flank pain. Labs and imaging studies were performed. Imaging does reveal mild left hydronephrosis and hydroureter secondary to a 3 x 5 mm stone in the distal left ureter 6 cm away from the UVJ. Laboratory studies reviewed. Labs show a white blood cell count 11.5. Chemistry panel unremarkable. Urine Does show evidence of infection with large leukocyte esterase, 120 white blood cells, occasional white blood cell clumps, and few bacteria. Urine culture was obtained. Patient provided 2 g of ceftriaxone. Discharged home with urinary strainer, prescription for Flomax, [place], Zofran, and Keflex with referral to urology. Undiagnosed new problem with uncertain prognosis? @ -No Drug Therapy requiring intensive monitoring for toxicity (Heparin, Nitro, Insulin, Cardizem)? @ -No Were any procedures done? @ -No Diagnosis/symptom? @ -Kidney stone Acute, or Chronic, or Acute on Chronic? @ -Acute Uncomplicated (without systemic symptoms) or Complicated (systemic symptoms)? @ -Uncomplicated Side effects of treatment? @ -No Exacerbation, Progression, or Severe Exacerbation? @ -No Poses a threat to life or bodily function? How? (Chest pain, USA, CT, pneumonia, PE, COPD, DKA, ARF, appy, cholecystitis, CVA, Diverticulitis, Homicidal, Suicidal, threat to staff... and all critical care pts) @ -Unlikely - Lab Data Result diagrams: 01/20/24 01:05 01/20/24 01:05 Lab Results 01/20/24 01/20/24 01/20/24 Range/Units 01:05 01:05 03:42 WBC 11.5 H (3.8-10.6) k/uL RBC 4.40 (4.30-5.90) m/uL Hgb 13.0 (13.0-17.5) gm/dL Hct 41.1 (39.0-53.0) % MCV 93.4 (80.0-100.0) fL MCH 29.6 (25.0-35.0) pg MCHC 31.7 (31.0-37.0) g/dL RDW 14.4 (11.5-15.5) % Plt Count 305 (150-450) k/uL MPV 8.4 Neutrophils % 57 % Lymphocytes % 32 % Monocytes % 7 % Eosinophils % 2 % Basophils % 1 % Neutrophils # 6.5 (1.3-7.7) k/uL Lymphocytes # 3.7 (1.0-4.8) k/uL Monocytes # 0.8 (0-1.0) k/uL Eosinophils # 0.2 (0-0.7) k/uL Basophils # 0.1 (0-0.2) k/uL Sodium 137 (137-145) mmol/L Potassium 4.1 (3.5-5.1) mmol/L Chloride 109 H (98-107) mmol/L Carbon Dioxide 23 (22-30) mmol/L Anion Gap 5 mmol/L BUN 13 (9-20) mg/dL Creatinine 0.76 (0.66-1.25) mg/dL Est GFR (CKD-EPI)AfAm >90 (>60 ml/min/1.73 sqM) Est GFR (CKD-EPI)NonAf >90 (>60 ml/min/1.73 sqM) Glucose 134 H (74-99) mg/dL Calcium 8.7 (8.4-10.2) mg/dL Total Bilirubin 0.3 (0.2-1.3) mg/dL AST 20 (17-59) U/L ALT 26 (4-49) U/L Alkaline Phosphatase 91 (38-126) U/L Total Protein 6.8 (6.3-8.2) g/dL Albumin 3.7 (3.5-5.0) g/dL Amylase 66 (30-110) U/L Lipase 66 (23-300) U/L Urine Color Yellow Urine Appearance Cloudy (Clear) Urine pH 6.0 (5.0-8.0) Ur Specific Lena 1.027 (1.001-1.035) Urine Protein 1+ H (Negative) Urine Glucose (UA) Negative (Negative) Urine Ketones Negative (Negative) Urine Blood Large H (Negative) Urine Nitrite Negative (Negative) Urine Bilirubin Negative (Negative) Urine Urobilinogen 3.0 (<2.0) mg/dL Ur Leukocyte Esterase Large H (Negative) Urine RBC >182 H (0-5) /hpf Urine WBC 120 H (0-5) /hpf Urine WBC Clumps Occasional H (None) /hpf Ur Squamous Epith Cells 1 (0-4) /hpf Urine Bacteria Few H (None) /hpf Urine Mucus Many H (None) /hpf Disposition Clinical Impression: Kidney stone Disposition: HOME SELF-CARE Condition: Good Instructions (If sedation given, give patient instructions): Kidney Stones (ED), How to Strain Your Urine (ED) Additional Instructions: Please return to the Emergency Department if symptoms worsen or any other concerns. Please follow-up with urology. Prescriptions: Tamsulosin [Flomax] 0.4 mg PO DAILY #7 cap Cephalexin [Keflex] 500 mg PO Q6HR 7 Days #28 cap HYDROcodone/APAP 5-325MG [[place] 5] 1 each PO Q6HR PRN #12 tab PRN Reason: Pain Ondansetron Odt [Zofran Odt] 4 mg PO Q8HR PRN #10 tab PRN Reason: Nausea Is patient prescribed a controlled substance at d/c from ED?: No Referrals: None,Stated [Primary Care Provider] - 1-2 days Kevin Garcia MD [STAFF PHYSICIAN] - 1-2 days Time of Disposition: 05:17
[2024-01-20] MEDS: SODIUM CHLORIDE 0.9% 500 ML 500 ML IV STA (01:15)
[2024-01-20] MEDS: HYDROmorphone 0.5 MG/0.5 ML SYRINGE IVP STA ×2 (01:15→03:48)
[2024-01-20] MEDS: KETOROLAC 15 MG/ML 1 ML VIAL IVP STA (01:16)
[2024-01-20 01:39] LABS: Basophils # (A) 0.1 k/uL (0-0.2); Basophils % (A) 1 %; Eosinophils # (A) 0.2 k/uL (0-0.7); Eosinophils % (A) 2 %; HCT 41.1 % (39.0-53.0); Lymphocytes # (A) 3.7 k/uL (1.0-4.8); Lymphocytes % (A) 32 %; MCH 29.6 pg (25.0-35.0); MCHC 31.7 g/dL (31.0-37.0); MCV 93.4 fL (80.0-100.0); Mean Platelet Volume 8.4; Monocytes # (A) 0.8 k/uL (0-1.0); Monocytes % (A) 7 %; Neutrophils # (A) 6.5 k/uL (1.3-7.7); Neutrophils % (A) 57 %; Platelet Count 305 k/uL (150-450); RDW 14.4 % (11.5-15.5); WBC 11.5 k/uL (3.8-10.6)
[2024-01-20 01:59] LABS: AST 20 U/L (17-59); African American GFR (CKD) >90 (>60 ml/min/1.73 sqM); Albumin 3.7 g/dL (3.5-5.0); Alkaline Phosphatase 91 U/L (38-126); Amylase 66 U/L (30-110); Blood Urea Nitrogen 13 mg/dL (9-20); Calcium 8.7 mg/dL (8.4-10.2); Carbon Dioxide 23 mmol/L (22-30); Glucose 134 mg/dL (74-99); Non-African American GFR(CKD) >90 (>60 ml/min/1.73 sqM); Total Bilirubin 0.3 mg/dL (0.2-1.3); Total Protein 6.8 g/dL (6.3-8.2)
--- NOTE | 2024-01-20 02:18 | CT ---
EXAM: CT Abdomen and Pelvis Without Intravenous Contrast CLINICAL HISTORY: CT Reason: l flank pain r/o stone TECHNIQUE: Axial computed tomography images of the abdomen and pelvis without intravenous contrast. CTDI is 44.5 mGy and DLP is 2706 mGy-cm. This CT exam was performed using one or more of the following dose reduction techniques: automated exposure control, adjustment of the mA and/or kV according to patient size, and/or use of iterative reconstruction technique. COMPARISON: January 13, 2019 FINDINGS: Lung bases: Unremarkable. No mass. No consolidation. ABDOMEN: Liver: There is fatty infiltration of the liver and hepatomegaly with the liver measuring 20 cm craniocaudad. No focal liver mass lesion is seen. Gallbladder and bile ducts: Unremarkable. No calcified stones. No ductal dilation. Pancreas: Unremarkable. No ductal dilation. Spleen: Unremarkable. No splenomegaly. Adrenals: Unremarkable. No mass. Kidneys and ureters: Mild left hydronephrosis and hydroureter down to a 3 x 5 mm calculus in the distal left ureter located approximately 6 cm from ureterovesicular junction. Stomach and bowel: Bowel loops are nondilated. There is diverticulosis of the left and sigmoid colon without evidence of acute diverticulitis. No acute inflammatory changes are seen involving the bowel. PELVIS: Appendix: No findings to suggest acute appendicitis. Bladder: Unremarkable. No stones. Reproductive: Unremarkable as visualized. ABDOMEN and PELVIS: Intraperitoneal space: Unremarkable. No free air. No significant fluid collection. Bones/joints: Mild degenerative changes in the spine. No acute fracture or subluxation. Soft tissues: Unremarkable. Vasculature: Unremarkable. No abdominal aortic aneurysm. Lymph nodes: Unremarkable. No enlarged lymph nodes. IMPRESSION: 1. Mild left hydronephrosis and hydroureter down to a 3 x 5 mm calculus in the distal left ureter located approximately 6 cm from ureterovesicular junction. 2. Bowel loops are nondilated. There is diverticulosis of the left and sigmoid colon without evidence of acute diverticulitis. No acute inflammatory changes are seen involving the bowel.
[2024-01-20 02:23] LABS: ALT 26 U/L (4-49); Anion Gap 5 mmol/L; Chloride 109 mmol/L (98-107); Lipase 66 U/L (23-300); Potassium 4.1 mmol/L (3.5-5.1); Sodium 137 mmol/L (137-145)
[2024-01-20] MEDS: ACETAMINOPHEN TAB 500 MG TAB PO STA (02:37)
[2024-01-20] MEDS: HYDROmorphone 1 MG/ML 1 ML SYRINGE IVP STA (02:39)
[2024-01-20 04:49] LABS: Appearance,Urine Cloudy (Clear); Bacteria,Urine Few /hpf; Bilirubin,Urine Negative (Negative); Blood,Urine Large (Negative); Color,Urine Yellow; Glucose,Urine (UA) Negative (Negative); Ketones,Urine Negative (Negative); Leukocyte Esterase,Urine Large (Negative); Mucus,Urine Many /hpf; Nitrite,Urine Negative (Negative); Protein,Urine 1+ (Negative); RBC,Urine >182 /hpf (0-5); Specific Gravity,Urine 1.027 (1.001-1.035); Squamous Epithelial Cell,Urine 1 /hpf (0-4); WBC,Urine 120 /hpf (0-5)
[2024-01-20] MEDS: cefTRIAXone IN SWFI 1,000 MG/10 ML SYRINGE IVP STA (05:17)
[2024-01-20] MEDS: SODIUM CHLORIDE 0.9% 1,000 ML BAG IV STA (05:20)
[2024-01-20 06:21] VITALS: BP 124/77; PULSE 60; RESP 16; TEMP 98.7
== END 2024-01-20 06:21 | disposition home or self-care (01) ==
LOC: EC 00:25
DX: N13.2 Hydronephrosis with renal and ureteral calculous obstruction (principal); F17.200 Nicotine dependence, unspecified, uncomplicated
CPT/HCPCS: 99284; 96374; 96375 ×2; 96376 ×2; 96361; 36415; 80053; 82150; 83690; 85025; 81001; 87086; 74176; J0696; J1170 ×2; J1885